=== PATIENT | female | born 1975 | race Caucasian/White ===

== ENCOUNTER 2025-02-07 08:14 | Day surgery (SDC) | payer BC, SELFPAY ==
--- NOTE | 2025-01-31 12:36 | HP.PCM_ITS ---
History and Physical Date of Admission: 02/07/25 HPI: The patient is a 49 year old female presenting for pre-operative visit. She is scheduled for hysteroscopy with endometrial ablation, for menorrhagia with regular cycle . Procedure discussed along with risks, benefits and complications. Other alternatives discussed for management. Consent form signed? Yes. ? ? PAST MEDICAL HISTORY PAST MEDICAL HISTORYDiagnosisDate?Abnormal glandular Papanicolaou smear of [id number]?Abn. Pap smear (cervix)?PMH - PAST MEDICAL HISTORY OF??POST DVT?PMH - PAST MEDICAL HISTORY OF??MISCARRIAGE X6?Urinary tract infection, site not specified??Recurrent UTI's ? ? PAST SURGICAL HISTORY PAST SURGICAL HISTORYProcedureLateralityDate? DELIVERY ONLY?07/23/2009,2007,2011?, low transverseX2?DILATION & CURETTAGE DX&/THER NONOBSTETRIC?2004,2009?Dilation & curettage?LIG/TRNSXJ FLP TUBE ABDL/VAG APPR UNI/BI?12/29/11?Tubal ligation ? ? ? CURRENT MEDICATIONS Current Outpatient MedicationsMedicationSigDispenseRefill?BEEFBeef organ???tranexamic acid (LYSTEDA) 650 mg tabletTake 2 tablets by mouth three times a day. for 5 days when your period [id number]?No current facility- administered medications for this visit. ? ? ALLERGIES: Patient has no known allergies. ? PERSONAL HISTORY: [SOCIAL HISTORY] [SOCIAL HISTORY] Social History Tobacco Use ? Smoking status: Former ? ? Current packs/day: 0.00 ? ? Average packs/day: 0.5 packs/day for 1 0.0 years (5.0 ttl pk-yrs) ? ? Types: Cigarettes ? ? Start date: 02/19/1997 ? ? Quit date: 02/19/2007 ? ? Years since quittin.9 ? Smokeless tobacco: Never Vaping Use ? Vaping status: Never Used Substance Use Topics ? Alcohol use: Yes ? ? Comment: SOCIALLY,NOT WHILE ? Drug use: No ? FAMILY HISTORY: FAMILY HISTORY FAMILY HISTORY ProblemRelationAge of Onset ?DiabetesFather??HypertensionFather??HeartFather?? [place]?DiabetesMother??Colon [id number]?Ovarian qvvoxdUkgyyp65?other (LYMPHEDMA)Mother??COPDMaternal Grandmother??CancerMaternal Grandfather?? LUNG CANCER?HypertensionPaternal Grandmother??HeartPaternal Grandmother?? [place]?CancerPaternal Grandfather?? LUNG CANCER0 ? ? REVIEW OF SYMPTOMS: GENERAL: denies fevers or chills ENDOCRINOLOGY: has not been on steroids Cardiology : denies palpitations or chest pain Respiratory: denies SOB or cough Hematology: denies history of prolonged bleeding or easy bruising or VTE Allergy: Denies history of personal or family history of allergy to anesthesia ? PHYSICAL EXAMINATION: ? VITALS: Last menstrual period 11/22/2024. ? GENERAL: The patient is well nourished, well hydrated in no acute distress. , The patient is oriented to time, place, and person. NECK: Supple. No lynphadenopathy, normal thyroid, no thyromegaly. LUNGS: Clear to auscultation bilaterally. no wheezes, rhonchi or rales HEART: Regular rate and rhythm, Normal heart sounds, and No murmurs or gallops ? IMPRESSION: menorrhagia with regula cycle ? PLAN: The risks/benefits/alternatives and personal involved for the planned hysteroscopy with endometrial ablation were reviewed with the patient. Her questions were answered to her satisfaction and she desires to proceed. Consent was signed. I reviewed with her postop instructions and expectations. ? ? I have reviewed and updated past medical and surgical history, medications and allergies Assessment & Plan Assessment/Plan (1) Menorrhagia with regular cycle:
--- NOTE | 2025-01-31 12:36 | HP.PCM_ITS ---
History and Physical Date of Admission: 02/07/25 HPI: The patient is a 49 year old female presenting for pre-operative visit. She is scheduled for hysteroscopy with endometrial ablation, for menorrhagia with regular cycle . Procedure discussed along with risks, benefits and complications. Other alternatives discussed for management. Consent form signed? Yes. ? ? PAST MEDICAL HISTORY PAST MEDICAL HISTORYDiagnosisDate?Abnormal glandular Papanicolaou smear of [id number]?Abn. Pap smear (cervix)?PMH - PAST MEDICAL HISTORY OF??POST DVT?PMH - PAST MEDICAL HISTORY OF??MISCARRIAGE X6?Urinary tract infection, site not specified??Recurrent UTI's ? ? PAST SURGICAL HISTORY PAST SURGICAL HISTORYProcedureLateralityDate? DELIVERY ONLY?07/23/2009,2007,2011?, low transverseX2?DILATION & CURETTAGE DX&/THER NONOBSTETRIC?2004,2009?Dilation & curettage?LIG/TRNSXJ FLP TUBE ABDL/VAG APPR UNI/BI?12/29/11?Tubal ligation ? ? ? CURRENT MEDICATIONS Current Outpatient MedicationsMedicationSigDispenseRefill?BEEFBeef organ???tranexamic acid (LYSTEDA) 650 mg tabletTake 2 tablets by mouth three times a day. for 5 days when your period [id number]?No current facility- administered medications for this visit. ? ? ALLERGIES: Patient has no known allergies. ? PERSONAL HISTORY: [SOCIAL HISTORY] [SOCIAL HISTORY] Social History Tobacco Use ? Smoking status: Former ? ? Current packs/day: 0.00 ? ? Average packs/day: 0.5 packs/day for 1 0.0 years (5.0 ttl pk-yrs) ? ? Types: Cigarettes ? ? Start date: 02/19/1997 ? ? Quit date: 02/19/2007 ? ? Years since quittin.9 ? Smokeless tobacco: Never Vaping Use ? Vaping status: Never Used Substance Use Topics ? Alcohol use: Yes ? ? Comment: SOCIALLY,NOT WHILE ? Drug use: No ? FAMILY HISTORY: FAMILY HISTORY FAMILY HISTORY ProblemRelationAge of Onset ?DiabetesFather??HypertensionFather??HeartFather?? [place]?DiabetesMother??Colon [id number]?Ovarian lexssqVbxkjy53?other (LYMPHEDMA)Mother??COPDMaternal Grandmother??CancerMaternal Grandfather?? LUNG CANCER?HypertensionPaternal Grandmother??HeartPaternal Grandmother?? [place]?CancerPaternal Grandfather?? LUNG CANCER0 ? ? REVIEW OF SYMPTOMS: GENERAL: denies fevers or chills ENDOCRINOLOGY: has not been on steroids Cardiology : denies palpitations or chest pain Respiratory: denies SOB or cough Hematology: denies history of prolonged bleeding or easy bruising or VTE Allergy: Denies history of personal or family history of allergy to anesthesia ? PHYSICAL EXAMINATION: ? VITALS: Last menstrual period 11/22/2024. ? GENERAL: The patient is well nourished, well hydrated in no acute distress. , The patient is oriented to time, place, and person. NECK: Supple. No lynphadenopathy, normal thyroid, no thyromegaly. LUNGS: Clear to auscultation bilaterally. no wheezes, rhonchi or rales HEART: Regular rate and rhythm, Normal heart sounds, and No murmurs or gallops ? IMPRESSION: menorrhagia with regula cycle ? PLAN: The risks/benefits/alternatives and personal involved for the planned hysteroscopy with endometrial ablation were reviewed with the patient. Her questions were answered to her satisfaction and she desires to proceed. Consent was signed. I reviewed with her postop instructions and expectations. ? ? I have reviewed and updated past medical and surgical history, medications and allergies Assessment & Plan Assessment/Plan (1) Menorrhagia with regular cycle:
[2025-02-03 14:10] LABS: Hematocrit 41.5 % (37-47); Hemoglobin 14.4 g/dL (12.0-15.0); Mean Corp Hgb Conc 34.7 g/dL (32-36); Mean Corpuscular Volume 83.5 fL (81-99); Mean Platelet Vol. 9.5 fl (6.2-12.0); Platelet Count 240 K/mm3 (150-450); RBC Distribution Width CV 13.1 % (11.6-14.6); RBC Distribution Width SD 39.7 fl (35.1-43.9); Red Blood Count 4.97 M/mm3 (4.2-5.4); White Blood Count 9.1 K/mm3 (4.4-11.0)
[2025-02-07] VITALS (8 sets, daily range): BP systolic 111–135; BP diastolic 71–92; PULSE 67–113; RESP 16–20; TEMP 36.2–36.3; O2SAT 99–100; BMI 29.3
--- OUTSIDE RECORDS SUMMARY | 2025-02-07 08:38 | XMS RPT_ITS | CCD ---
Author Organization [facility] Inform ion Partnership [facility] Care Team Providers Care Blender Conveyor Operator Name Role Phone Joshua Kong Primary Care Provider [phone] ENRIQUE HOOD Referring Unavaila ble ENRIQUE HOOD Attending Unavaila ble MIKLATOYA RYLAND Primary Care Unavailable MIKALOV RYLAND Primary Care Unavailable SYSTEM, PROVIDER NOT IN Referring Unavaila ble SYSTEM, PROVIDER NOT IN Attending Unavaila ble SYSTEM, PROVIDER NOT IN Referring Unavaila ble SYSTEM, PROVIDER NOT IN Attending Unavaila ble TAMIA, RYLAND Primary Care Unavailable Joshua Kong Primary Care Provider [phone] AZEB PROTCOR Attending Unavailable JOSHUA KONG Primary Care Unavailable JOSHUA KONG Primary Care Unavailable JOSHUA KONG Primary Care Unavailable AZEB PROCTOR Referring Unavailable AZEB PROCTOR Attending Unavailable AZEB PROCTOR Referring Unavailable AZEB PROCTOR Attending Unavailable ENRIQUE HOOD Primary Care Unavaila Azeb Mcginnis Referring Unavailable Azeb Proctor Attending Unavailable CASS HOOPER Primary Care Unavailable Medications Current Medications Medication Drug Class(es) Dates Sig (Normalized) Sig (Original) beef allergenic extract (1 source) Non-Standardized Food Allergenic Extract BEEF Beef organ Active meloxicam 15 mg oral tablet (1 source) Nonsteroidal Anti-inflammatory Drug Start: 7 take 1 tablet by mouth once daily meloxicam 15 MG Tab tablet Indications: Pain of right hand Take 1 tablet by mouth daily. 30 tablet 1 03/23/2017 Active nitrofurantoin, macrocrystals 25 mg / nitrofurantoin, monohydrate 75 mg oral capsule (1 source) Nitrofuran Antibacterial Start: 9 End: 9 take 1 capsule by mouth twice daily nitrofurantoin, macrocrystal-monohy drate, 100 MG Cap Indications: Acute cystitis without hematuria Take 1 capsule by mouth 2 times daily for 10 days. Take w/ food/milk 20 capsule 0 03/13/2019 03/23/2019 Active phenazopyridine hydrochloride 200 mg oral tablet (1 source) Start: 9 take 1 tablet by mouth three times daily phenazopyridine 200 MG Tab tablet Indications: Acute cystitis without hematuria Take 1 tablet by mouth 3 times daily. 6 tablet 0 03/13/2019 Active tranexamic acid 650 mg oral tablet (1 source) Antifibrinolytic Agent Start: 5 take 2 tablets by mouth three times daily tranexamic acid (LYSTEDA) 650 mg tablet Indications: Menorrhagia with regular cycle Take 2 tablets by mouth three times a day. for 5 days when your period starts 30 tablet 11 12/11/2024 Active Problems Active Problems Problem Classification Problem Date Documented Date Episodic/Chronic Immunizations and screening for infectious disease (2 sources) Patient encounter status; Translations: [Encounter for screening for human papillomavirus (HPV)] Onset: 12-11-2024 12-11-2024 Episodic Malaise and fatigue (3 sources) Malaise and fatigue; Translations: [Other malaise] Onset: 01-03-2025 12-11-2024 Episodic Menstrual disorders (6 sources) Menorrhagia; Translations: [Excessive and frequent menstruation with regular cycle] Onset: 12-11-2024 12-11-2024 Chronic Other female genital disorders (3 sources) Abnormal uterine and vaginal bleeding, unspecified; Translations: [Abnormal uterine bleeding (AUB)] Onset: 12-11-2024 Chronic Other screening for suspected conditions (not mental disorders or infectious disease) (4 sources) Encounter for screening mammogram for malignant neoplasm of breast; Translations: [Cancer cervix screening status] Onset: 09-25-2024 Episodic Urinary tract infections (2 sources) Urinary tract infectious disease; Translations: [Acute cystitis] Episodic Past or Other Problems Problem Classification Problem Date Documented Da te Episodic/Chronic Allergic reactions (1 source) Allergic reaction to drug; Translations: [Allergy, unspecified, initial encounter] Onset: 07-03-2011 Resolved: 08-17-2011 08-17-2011 Episodic Anal and rectal conditions (1 source) Anal fissure; Translations: [Anal fissure, unspecified] Onset: 09-17-2010 Resolved: 08-17-2011 08-17-2011 Episodic Coagulation and hemorrhagic disorders (1 source) Heterozygous Factor V Leiden mutation; Translations: [Activated protein C resistance] Onset: 10-12-2011 Resolved: 10-12-2011 10-12-2011 Chronic Hemorrhoids (1 source) Hemorrhoids; Translations: [Unspecified hemorrhoids] Onset: 09-17-2010 09-17-2010 Episodic Other complications of (2 sources) Supervision of other high risk pregnancies, unspecified trimester; Translations: [Supervision of other high-risk ] Onset: 05-10-2007 Resolved: 08-05-2009 08-20-2024 Episodic Other complications of (2 sources) Recurrent miscarriage; Translations: [ care for patient with recurrent loss, unspecified trimester] Onset: 07-07-2007 Resolved: 01-13-2012 08-20-2024 Episodic Other complications of (2 sources) Supervision of with other poor reproductive or obstetric history, unspecified trimester; Translations: [ with other poor obstetric history] Onset: 11-08-2007 Resolved: 08-05-2009 08-20-2024 Episodic Other complications of (1 source) Multigravida of advanced maternal age; Translations: [Supervision of elderly multigravida, unspecified trimester] Onset: 05-24-2011 Resolved: 01-13-2012 01-13-2012 Episodic Other complications of (1 source) A/N care: poor obstetric history; Translations: [Supervision of with other poor reproductive or obstetric history, unspecified trimester] Onset: 10-12-2011 Resolved: 01-13-2012 04-19-2021 Episodic Other skin disorders (1 source) Superficial ulcer of skin; Translations: [Disorder of the skin and subcutaneous tissue, unspecified] Onset: 07-03-2011 Resolved: 08-17-2011 08-17-2011 Episodic Phlebitis; thrombophlebitis and thromboembolism (1 source) H/O: Deep vein thrombosis; Translations: [Personal history of other venous thrombosis and embolism] Onset: 10-12-2011 04-19-2021 Episodic Skin and subcutaneous tissue infections (2 sources) Pyoderma; Translations: [Pyoderma] Onset: 07-03-2011 Resolved: 08-17-2011 08-17-2011 Episodic Results Test Name Value Interpretation Reference Range Facility CBC-Complete Blood Cnt Elba Hernandez 02-03-2025 Erythrocyte distribution width (RBC) [Ratio] 13.1 % Normal 11.6-14.6 [facility] Comment on above: Performed By: #### L 100.0500 #### [facility] [address] [place], [address] Hematocrit (Bld) [Volume fraction] 41.5 % Normal 37-47 [facility] Comment on above: Performed By: #### L 100.0500 #### [facility] [address] [place], [address] Hemoglobin (Bld) [Mass/Vol] 14.4 g/dL Normal 12.0-15.0 [facility] Comment on above: Performed By: #### L 100.0500 #### [facility] [address] [place], [address] MCH (RBC) [Entitic mass] 29.0 pg Normal 27.0-32.0 [facility] Comment on above: Performed By: #### L 100.0500 #### [facility] [address] [place], [address] MCHC (RBC) [Mass/Vol] 34.7 g/dL Normal 32-36 [facility] Comment on above: Performed By: #### L 100.0500 #### [facility] [address] [place], [address] MCV (RBC) [Entitic vol] 83.5 fL Normal 81-99 [facility] Comment on above: Performed By: #### L 100.0500 #### [facility] [address] [place], [address] Platelet mean volume (Bld) [Entitic vol] 9.5 fL Normal 6.2-12.0 [facility] Comment on above: Performed By: #### L 100.0500 #### [facility] [address] [place], [address] Platelets (Bld) [#/Vol] 240 10*3/uL Normal 150-450 [facility] Comment on above: Performed By: #### L 100.0500 #### [facility] [address] [place], [address] RBC (Bld) [#/Vol] 4.97 10*6/uL Normal 4.2-5.4 [facility] Comment on above: Performed By: #### L 100.0500 #### [facility] [address] [place], [address] RDW SD 39.7 fl Normal 35.1-43.9 [facility] Comment on above: Performed By: #### L 100.0500 #### [facility] [address] [place], [address] WBC (Bld) [#/Vol] 9.1 10*3/uL Normal 4.4-11.0 [facility] Comment on above: Performed By: #### L 100.0500 #### [facility] [address] [place], [address] CNOVon 01-17-2025 CNOV Office Visit (OBGYWM ) MELLISA CRUZ ([id number]) 1975 F Date Time Provider Department 01/17/25 11:30 AM AZEB PROCTOR OBGYWHiginio During your visit today, we recorded the following information about you: Azeb Proctor MD 01/17/2025 12:27 PM Signed Mellisa is a 49 year old who presents today for an endometrial biopsy for abnormal uterine bleeding. test: negative UNIVERSAL PROTOCOL / SAFETY CHECKLIST Procedure to be Performed: EMB Sign In: A Moment of CARE was completed. Appropriate PPE (Personal Protective Equipment) worn by all providers involved with the procedure. Special equipment not required. Patient/Surrogate Stated/Verified: Patient name, Date of , Relevant allergies, and The intended procedure Time Out: Relevant labs, photos, and/or imaging studies have been reviewed. Intended patient and procedure match the source document(s) (e.g. consent, HANDP, associated studies [imaging, pathology]) are not applicable. Consent obtained and matches the intended procedure. Yes. Correct side/site is not applicable. Medications required for this procedure are verified. Fire risk assessed and is not applicable. Implants: are not applicable. Sign Out: Specimens are all correctly labeled and sent. All instruments, equipment, possible retained foreign bodies are accounted for. Yes. The post-procedure plan of care has been communicated to the patient or surrogate. PROCEDURE: EXTERNAL GENITALIA: Normal in appearance without lesions VAGINA: Normal in appearance without lesions BIOPSY: Speculum placed into the vagina with excellent visualization of the cervix. Cervix cleaned with betadine. Anterior lip of cervix grasped with single toothed tenaculum. Uterus sounded to 10 cm. Pipelle inserted into the uterus without difficulty and endometrial biopsy obtained. Specimen labeled and sent to pathology. Procedure Summary: Patient tolerated procedure well. ASSESSMENT: abnormal uterine bleeding PLAN: Specimens labeled and sent to Pathology. Will notify patient of results in 1-2 weeks. Post-procedure instructions reviewed and written material given to the patient. desires endometrial ablation Reviewed US done 01/13 MD Magui Carranza [place], [place] 01/17/2025 11:15 AM Signed Post-Procedure Instructions Endometrial Biopsy Instructions: You may experience irregular bleeding / spotting for up to a week after this procedure. Use a panty liner or pad instead of tampons for about one week. Avoid vaginal intercourse or putting anything in your vagina for about one week. Pain Control / Medications: Take 600 mg of ibuprofen (Advil, Motrin, etc.) or 1000 mg of acetaminophen (Tylenol) every 6 hours as needed for pain Do not take more than 2400 mg of ibuprofen or 4000 mg of acetaminophen in any 24 hour period You can also put a heating pad on your abdomen to help with pain. Call your provider's office if you: Have a fever greater than 100.4? F (38.0? C) Have very heavy bleeding (soaking 1 large pad an hour for 2 hours in a row) Prolonged vaginal bleeding for > 7 days following your procedure Have severe cramps that do not go away after you take ibuprofen or acetaminophen Have foul smelling vaginal discharge Follow-Up: Your specific follow up plan will depend on the results of the biopsy. Most biopsy results are available in 3 to 5 business days via Moe Delo, unless a different method of communication was discussed today with your provider. Azeb Proctor MD 01/17/2025 12:27 PM Signed Pre-Op History and Physical HPI: The patient is a 49 year old female presenting for pre-operative visit. She is scheduled for hysteroscopy with endometrial ablation, for menorrhagia with regular cycle . Procedure discussed along with risks, benefits and complications. Other alternatives discussed for management. Consent form signed? Yes. PAST MEDICAL HISTORY Diagnosis Date Abnormal glandular Papanicolaou smear of cervix 1997 Abn. 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 X6 Urinary tract infection, site not specified Recurrent UTI's PAST SURGICAL HISTORY Procedure Laterality Date DELIVERY ONLY 07/23/2009,2007,2011 , low transverseX2 DILATION AND CURETTAGE DXAND/THER NONOBSTETRIC 2004,2009 Dilation AND curettage LIG/TRNSXJ FLP TUBE ABDL/VAG APPR UNI/BI 12/29/11 Tubal ligation Current Outpatient Medications Medication Sig Dispense Refill BEEF Beef organ tranexamic acid (LYSTEDA) 650 mg tablet Take 2 tablets by mouth three times a day. for 5 days when your period starts 30 tablet 11 No current facility-administered medications for this visit. ALLERGIES: Patient has no known allergies. PERSONAL HISTORY: SOCIAL HISTORY[1] FAMILY HISTORY: FAMILY HISTORY Problem Relati (more content not included)... Normal [facility] HISTORY PHYSICALon HISTORY PHYSICAL HNO ID: [id number] Author: AZEB PROCTOR MD Service: ? Author Type: Physician Type: H&P Filed: 01/17/2025 12:27 Note Text: Pre-Op History and Physical HPI: The patient is a 49 year old female presenting for pre-operative visit. She is scheduled for hysteroscopy with endometrial ablation, for menorrhagia with regular cycle . Procedure discussed along with risks, benefits and complications. Other alternatives discussed for management. Consent form signed? Yes. PAST MEDICAL HISTORY Diagnosis Date Abnormal glandular Papanicolaou smear of cervix 1997 Abn. 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 X6 Urinary tract infection, site not specified Recurrent UTI's PAST SURGICAL HISTORY Procedure Laterality Date DELIVERY ONLY 07/23/2009,2007,2011 , low transverseX2 DILATION AND CURETTAGE DXAND/THER NONOBSTETRIC 2004,2009 Dilation AND curettage LIG/TRNSXJ FLP TUBE ABDL/VAG APPR UNI/BI 12/29/11 Tubal ligation Current Outpatient Medications Medication Sig Dispense Refill BEEF Beef organ tranexamic acid (LYSTEDA) 650 mg tablet Take 2 tablets by mouth three times a day. for 5 days when your period starts 30 tablet 11 No current facility-administered medications for this visit. ALLERGIES: Patient has no known allergies. PERSONAL HISTORY: SOCIAL HISTORY[1] FAMILY HISTORY: FAMILY HISTORY Problem Relation Age of Onset Diabetes Father Hypertension Father Heart Father HI Diabetes Mother Colon Cancer Mother 69 Ovarian cancer Mother 77 other (LYMPHEDMA) Mother COPD Maternal Grandmother Cancer Maternal Grandfather LUNG CANCER Hypertension Paternal Grandmother Heart Paternal Grandmother HI Cancer Paternal Grandfather LUNG CANCER REVIEW OF SYMPTOMS: GENERAL: denies fevers or chills ENDOCRINOLOGY: has not been on steroids Cardiology : denies palpitations or chest pain Respiratory: denies SOB or cough Hematology: denies history of prolonged bleeding or easy bruising or VTE Allergy: Denies history of personal or family history of allergy to anesthesia PHYSICAL EXAMINATION: VITALS: Last menstrual period 11/22/2024. GENERAL: The patient is well nourished, well hydrated in no acute distress. , The patient is oriented to time, place, and person. NECK: Supple. No lynphadenopathy, normal thyroid, no thyromegaly. LUNGS: Clear to auscultation bilaterally. no wheezes, rhonchi or rales HEART: Regular rate and rhythm, Normal heart sounds, and No murmurs or gallops IMPRESSION: menorrhagia with regula cycle PLAN: The risks/benefits/alterna tives and personal involved for the planned hysteroscopy with endometrial ablation were reviewed with the patient. Her questions were answered to her satisfaction and she desires to proceed. Consent was signed. I reviewed with her postop instructions and expectations. I have reviewed and updated past medical and surgical history, medications and allergies Azeb Proctor M.D. [1] Social History Tobacco Use Smoking status: Former Current packs/day: 0.00 Average packs/day: 0.5 packs/day for 10.0 years (5.0 ttl pk-yrs) Types: Cigarettes Start date: 02/19/1997 Quit date: 02/19/2007 Years since quittin.9 Smokeless tobacco: Never Vaping Use Vaping status: Never Used Substance Use Topics Alcohol use: Yes Comment: SOCIALLY,NOT WHILE Drug use: No Normal [facility] Pathology biopsy report Saman (Tiss)on 01-17-2025 AP DISCLAIMER Normal [facility] Comment on above: Order Comment: Ev dixon Type: TISSUE SPECIMEN Ordering Facility: [facility] Address: [address] [place] [address] Result Comment: Venu gaxiola Developed Test (LDT) Disclaimer: Performance characteristics of immunohistochemical, immunofluorescent, and chromogenic in-situ hybridization tests have been determined by the performing laboratory within the [facility] Department of Pathology and Laboratory Medicine ([facility], [facility], [facility], [facility], [facility], [facility], or [facility]) in a manner consistent with CLIA requirements. One or more of these tests may not have been cleared or approved by the FDA. The [facility] Department of Pathology and Laboratory Medicine is regulated under CLIA as qualified to perform high-complexity testing. These tests are used for clinical purposes. These should not be regarded as investigational or for research. Positive and negative controls stain appropriately. Performed By: #### 6 6121-5 #### [facility] CLIA [id number] [address] [place] [address] [place] [address] [place] CASE REPORT Normal [facility] Comment on above: Order Comment: Speci men Type: TISSUE SPECIMEN Ordering Facility: [facility] Address: [address] [place] [address] Result Comment: Surg [facility] Pathology Report Case: [id number] Authorizing Provider: Azeb Proctor MD Collected: 01/17/2025 11:52 AM Ordering Location: OB/Gynecology Received: 01/17/2025 04:44 PM Pathologist: Cecilio Floyd MD, PhD Specimen: Endometrium, Biopsy Performed By: #### 6 6121-5 #### [facility] CLIA [id number] [address] [place] [address] OF [facility] CLINICAL HISTORY menorrhagia with regular cycle Normal [facility] Comment on above: Order Comment: Speci men Type: TISSUE SPECIMEN Ordering Facility: [facility] Address: [address] [place] [address] Performed By: #### 6 6121-5 #### [facility] CLIA [id number] [address] [place] [address] FINAL DIAGNOSIS Normal [facility] Comment on above: Order Comment: Speci men Type: TISSUE SPECIMEN Ordering Facility: [facility] Address: [address] [place] [address] Result Comment: A. E ndometrium, biopsy: - Proliferative endometrium with stromal breakdown. at 1138 EDT Performed By: #### 6 6121-5 #### [facility] CLIA [id number] [address] [place] [address] OF [facility] FINAL PERFORMING LAB Normal [facility] Comment on above: Order Comment: Speci men Type: TISSUE SPECIMEN Ordering Facility: [facility] Address: [address] [place] [address] Result Comment: Diag nostic interpretation performed at: [facility], [address] [place] [address] CLIA# [id number] Imaging Assistant: Jhon Fu MD Performed By: #### 6 6121-5 #### [facility] CLIA [id number] [address] [place] [address] [place] GROSS DESCRIPTION Normal [facility] Comment on above: Order Comment: Speci men Type: TISSUE SPECIMEN Ordering Facility: [facility] Address: [address] [place] [address] Result Comment: A. E ndometrium, Biopsy Received in formalin are multiple jewell to jewell-brown, soft feathery segments of tissue admixed with mucinous material and red-brown hemorrhagic material aggregating to 2.1 x 2.1 x 0.2 cm. Totally submitted in one cassette. DB January 17, 2025 7:30 PM Gross examination performed at [facility], [address] [place] [address] Performed By: #### 6 6121-5 #### [facility] [place] [id number] [address] [place] [address] [place] US PELVIC TRANSABDOMINAL AND TRANSVAGINALon 01-13-2025 US PELVIC TRANSABDOMINAL AND TRANSVAGINAL EXAMINATION: TRANSABDOMINAL AND TRANSVAGINAL PELVIC ULTRASOUND HISTORY: Abnormal uterine bleeding. COMPARISON FILMS: None. TECHNIQUE: Multiple sagittal, coronal images were obtained using transvaginal, transabdominal ultrasound. FINDINGS: The uterus measures 8.5 x 4.7 x 5.9 cm. Endometrium measures 5 mm. No focal endometrial lesion is apparent. Focal myometrial lesion is apparent. Somewhat limited uterine assessment. I cannot exclude heterogeneous mild thickening of the anterior myometrium. There are several probable nabothian cysts. These should be correlated clinically since they are entirely specific. No free pelvic fluid. Right ovary measures 3.4 x 2.2 x 2.2 cm. Left ovary measures 2.1 x 1.4 x 1.6 cm. The ovaries show few follicles and demonstrate color Doppler blood flow. IMPRESSION: Somewhat limited uterine evaluation due to its orientation. The anterior myometrium may be minimally heterogeneous and slightly prominent. Underlying adenomyosis is not excluded but the findings are nonspecific. MRI could further characterize. Several tiny cystic areas in the cervix should be correlated Pap smear results are likely nabothian cysts. Unremarkable ovaries. BJW/mjr Workstation ID: [id number] Dictated by: SO SANDHU on MonJan 13, 2025 3:31:23 PM EDT Transcribed by: BRIDGER HURTADO on MonJan 13, 2025 3:45:25 PM EDT Finalized by: SO SANDHU on MonJan 13, 2025 3:47:29 PM EDT [facility] Comment on above: Order Comment: Pt to bring order Injury/Trauma or Illness?:Illness/Other How long have you had these symptoms (acute/chronic)?:Acute Reason for exam?:AUB History of cancer?:unknown Surgeries, chemotherapy, or radiation?:c sections Type of Exam?:Initial Additional signs and symptoms?:no 25(OH)D3 [facility] 2024 25-hydroxyvitamin D3 [Mass/Vol] 81.0 ng/mL High 31.0-80.0 [facility] Comment on above: Order Comment: Ev dixon Type: BLOOD SPECIMEN Ordering Facility: [facility] Address: [address] [place] [address] Result Comment: Clas sification of 25 [place] Vitamin D status: Deficiency/Insufficiency: < or = 30 ng/ml. Sufficiency/Optimal Levels: 31-80 ng/mL Toxicity: > 100 ng/mL. Test performed by chemiluminescent immunoassay. Performed By: #### 1 989-3 #### [facility] CLIA [id number] [address] [place] [address] [place] CBC panel Auto (Bld)on 01-03 Erythrocyte distribution width (RBC) [Ratio] 13.1 % Normal 11.5-15.0 [facility] Comment on above: Order Comment: Ev dixon Type: BLOOD SPECIMEN Ordering Facility: [facility] Address: [address] [place] [address] Performed By: #### 5 8410-2 #### [facility] CLIA [id number] [address] [place] [address] [place] Hematocrit (Bld) [Volume fraction] 39.3 % Normal 36.0-46.0 [facility] Comment on above: Order Comment: Ev dixon Type: BLOOD SPECIMEN Ordering Facility: [facility] Address: [address] [place] [address] Performed By: #### 5 8410-2 #### [facility] CLIA [id number] [address] [id number] [place] Hemoglobin (Bld) [Mass/Vol] 13.7 g/dL Normal 11.5-15.5 [facility] Comment on above: Order Comment: Speci men Type: BLOOD SPECIMEN Ordering Facility: [facility] Address: [address] [place] [address] Performed By: #### 5 8410-2 #### [facility] CLIA [id number] [address] [id number] [place] MCH (RBC) [Entitic mass] 29.3 pg Normal 26.0-34.0 [facility] Comment on above: Order Comment: Speci men Type: BLOOD SPECIMEN Ordering Facility: [facility] Address: [address] [place] [address] Performed By: #### 5 8410-2 #### [facility] CLIA [id number] [facility] [place] [address] [place] MCHC (RBC) [Mass/Vol] 34.9 g/dL Normal 30.5-36.0 [facility] Comment on above: Order Comment: Speci men Type: BLOOD SPECIMEN Ordering Facility: [facility] Address: [address] [place] [address] Performed By: #### 5 8410-2 #### [facility] CLIA [id number] [facility] [place] [id number] [place] MCV (RBC) [Entitic vol] 84.0 fL Normal 80.0-100.0 [facility] Comment on above: Order Comment: Speci men Type: BLOOD SPECIMEN Ordering Facility: [facility] Address: [address] [place] [address] Performed By: #### 5 8410-2 #### [facility] CLIA [id number] [address] [id number] [place] Nucleated RBC (Bld) [#/Vol] 10*3/uL Normal <0.01 [facility] Comment on above: Order Comment: Speci men Type: BLOOD SPECIMEN Ordering Facility: [facility] Address: [address] [place] [address] Performed By: #### 5 8410-2 #### [facility] CLIA [id number] [address] [place] [address] [place] Platelet mean volume (Bld) [Entitic vol] 8.8 fL Low 9.0-12.7 [facility] Comment on above: Order Comment: Speci men Type: BLOOD SPECIMEN Ordering Facility: [facility] Address: [address] [place] [address] Performed By: #### 5 8410-2 #### [facility] CLIA [id number] [facility] [place] [id number] [place] Platelets (Bld) [#/Vol] 217 10*3/uL Normal 150-400 [facility] Comment on above: Order Comment: Speci men Type: BLOOD SPECIMEN Ordering Facility: [facility] Address: [address] [place] [address] Performed By: #### 5 8410-2 #### [facility] CLIA [id number] [facility] [place] [id number] [place] RBC (Bld) [#/Vol] 4.68 10*6/uL Normal 3.90-5.20 [facility] Comment on above: Order Comment: Speci men Type: BLOOD SPECIMEN Ordering Facility: [facility] Address: [address] [place] [address] Performed By: #### 5 8410-2 #### [facility] CLIA [id number] [address] [place] [address] [place] WBC (Bld) [#/Vol] 7.03 10*3/uL Normal 3.70-11.00 [facility] Comment on above: Order Comment: Speci men Type: BLOOD SPECIMEN Ordering Facility: [facility] Address: [address] [place] [address] Performed By: #### 5 8410-2 #### [facility] CLIA [id number] [address] [place] [address] [place] Iron and Iron binding capaci ty panelon 01-03-2025 Iron [Mass/Vol] 43 ug/dL Normal 41-186 [facility] Comment on above: Order Comment: Speci men Type: BLOOD SPECIMEN Ordering Facility: [facility] Address: [address] [place] [address] Performed By: #### 5 0190-8 #### [facility] CLIA [id number] [address] [place] [address] STATES [facility] Iron binding capacity [Mass/Vol] 337 ug/dL Normal 232-386 [facility] Comment on above: Order Comment: Speci men Type: BLOOD SPECIMEN Ordering Facility: [facility] Address: [address] [place] [address] Performed By: #### 5 0190-8 #### [facility] CLIA [id number] [address] [place] [address] [place] Iron/TIBC [Molar ratio] 12.8 % Low 15.0-57.0 [facility] Comment on above: Order Comment: Speci men Type: BLOOD SPECIMEN Ordering Facility: [facility] Address: [address] [place] [address] Performed By: #### 5 0190-8 #### [facility] CLIA [id number] [address] [place] [address] [place] CNOVon 12-11-2024 CNOV Office Visit (OBGYWM ) MELLISA CRUZ ([id number]) 1975 F Date Time Provider Department 12/11/24 12:00 PM AZEB PROCTOR OBGYWM During your visit today, we recorded the following information about you: Blood pressure Weight Last Period 122/74 83.5 kg 11/22/24 Azeb Proctor MD 12/11/2024 1:13 PM Signed Mellisa is a 49 year old who presents for an annual gynecologic exam with complaints, heavy menses, brain fog, fatigue, some hot flashes. Bleeds through protection at times Still get period: Yes Bleeding amount bothersome: Yes Bleeding between periods: No Period symptoms: Cramps; Mood change Menopause symptoms: Hot flashes Time with current partner: 20 years Number of lifetime partners: 10 control frequency: Never HPV vaccine: No; HPV:negative Last pap smear: 02/11/2021 History of abnormal pap: No, all prior PAP smears have been normal Bothersome pelvic pain: No Last mammogram: 2024 OB History Movmqxa95 Para4 Term4 Preterm0 AB6 Living4 SAB6 IAB0 Ectopic0 Multiple0 Live Births4 [employer] Consulting [employer] History LMP: 11/22/2024 (Exact Date), Having periods Age at Menarche: 17 Age at First : Age at Menopause: It 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 X6 Urinary tract infection, site not specified Recurrent UTI's PAST SURGICAL HISTORY Procedure Laterality Date DELIVERY ONLY 07/23/2009,2007,2012 , low transverseX2 DILATION AND CURETTAGE DXAND/THER NONOBSTETRIC 2004,2009 Dilation AND curettage LIG/TRNSXJ FLP TUBE ABDL/VAG APPR UNI/BI 12/29/11 Tubal ligation FAMILY HISTORY Problem Relation Age of Onset Diabetes Father Hypertension Father Heart Father HI Diabetes Mother Colon Cancer Mother 69 Ovarian cancer Mother 77 other (LYMPHEDMA) Mother COPD Maternal Grandmother Cancer Maternal Grandfather LUNG CANCER Hypertension Paternal Grandmother Heart Paternal Grandmother HI Cancer Paternal Grandfather LUNG CANCER SOCIAL HISTORY Social History Tobacco Use Smoking status: Former Current packs/day: 0.00 Average packs/day: 0.5 packs/day for 10.0 years (5.0 ttl pk-yrs) Types: Cigarettes Start date: 02/19/1997 Quit date: 02/19/2007 Years since quittin.8 Smokeless tobacco: Never Vaping Use Vaping status: Never Used Substance Use Topics Alcohol use: Yes Comment: SOCIALLY,NOT WHILE Drug use: No REVIEW OF SYSTEMS Abdomen: No abdominal pain, nausea, vomiting, diarrhea, or constipation. No bloating, early satiety, indigestion, or increased flatulence. Bladder: No dysuria, gross hematuria, urinary frequency, urinary urgency, or incontinence. Breast: No breast lumps, nipple d/c, overlying skin changes, redness or skin retraction. Allergies and current medication updated:Yes SENSITIVE EXAM: The sensitive examination was discussed with the Patient or Patient's Authorized Purchasing And Fiscal Clerk. As applicable, any other physician, advance practice provider, medical student, or other health professional student that will be observing or involved in the sensitive examination for educational or training purposes was discussed with the Patient or Authorized Purchasing And Fiscal Clerk. The Patient or Authorized Purchasing And Fiscal Clerk has agreed to proceed with the sensitive examination. (Sensitive examination includes inspection and/or palpation of the breasts, pelvis, prostate and anorectal regions). EXAM: BP 122/74 Wt 184 lb (83.5kg) LMP 11/22/2024 GENERAL: pleasant, female in no apparent distress HEENT: Normocephalic, atraumatic, mucus membranes moist, and no lesions NECK: Supple, full range of motion, no adenopathy, and thyroid normal DERMATOLOGY: Normal, without lesions, non-icteric, and non-hirsute BREAST: soft, non-tender, symmetric, no dominant mass, normal nipple-areolar complex, no lymphadenopathy, and no nipple discharge CHEST: Normal inspiratory effort ABDOMEN: soft, non-tender, and no masses PELVIC: external genitalia normal, normal Bartholin's glands, urethra, Vander's glands, no vulvar lesions, no cervical lesions, good vaginal support, physiologic discharge present, normal appearing perineal body and perianal region BIMANUAL: uterus normal size, shape and consistency, no adnexal masses, and non-tender RECTOVAGINAL:deferred NEURO: alert and oriented x3,exam grossly non-focal EXTREMITIES: normal ASSESSMENT/PLAN: 1) Health maintenance: Pap done with HPV. Mammogram up to date . Col (more content not included)... Normal [facility] PAP TESTon 12-11-2024 ADEQUACY Normal [facility] Comment on above: Order Comment: Speci men Type: FLUID SPECIMEN Ordering Facility: [facility] Address: [address] [place] [address] Result Comment: Sati sfactory for interpretation. Transformation zone present Performed By: #### L [id number] #### [facility] CLIA [id number] [address] [place] [address] [place] CASE REPORT Normal [facility] Comment on above: Order Comment: Speci men Type: FLUID SPECIMEN Ordering Facility: [facility] Address: [address] [place] [address] Result Comment: Gyne cologic Cytology Report Case: [id number] Authorizing Provider: Azeb Proctor MD Collected: 12/11/2024 02:55 PM Ordering Location: OB/Gynecology Received: 12/11/2024 04:28 PM First Screen: Roselyn Alejandra, CT, ASCP Rescreen: Ibrahima Roque, OLIVA, ASCP Specimen: Pap Test, ThinPrep, Cervix Performed By: #### L [id number] #### [facility] CLIA [id number] [address] [place] [address] [place] CLINICAL HISTORY, CYTOLOGY, PROPOSAL REP Routine Exam Normal [facility] Comment on above: Order Comment: Speci men Type: FLUID SPECIMEN Ordering Facility: [facility] Address: [address] [place] [address] Performed By: #### L [id number] #### [facility] CLIA [id number] [address] [place] [address] [place] FINAL PERFORMING LAB Normal [facility] Comment on above: Order Comment: Speci men Type: FLUID SPECIMEN Ordering Facility: [facility] Address: [address] [place] [address] Result Comment: Tech nical component, environmental solutions engineer screening performed at: [facility], [facility] [address] [address] CLIA: [id number] Diagnostic interpretation performed at: [facility], [address] [place] [address] CLIA# [id number] Imaging Assistant: Jhon Fu MD Performed By: #### L [id number] #### [facility] CLIA [id number] [address] [place], [place] [id number] [place] INTERPRETATION, CYTOLOGY, PROPOSAL REP Normal [facility] Comment on above: Order Comment: Speci men Type: FLUID SPECIMEN Ordering Facility: [facility] Address: [address] [place] [address] Result Comment: Nega tive for intraepithelial lesion or malignancy. at 1155 EDT Performed By: #### L [id number] #### [facility] CLIA [id number] [address] [place] [address] [place] LMP 11/22/2024 Normal [facility] Comment on above: Order Comment: Speci men Type: FLUID SPECIMEN Ordering Facility: [facility] Address: [address] [place] [address] Performed By: #### L [id number] #### [facility] CLIA [id number] [address] [place], [place] [id number] [place] PAP DISCLAIMER COMMENT The Pap Smear is a screening test for cervical cancer. False negative results occur with all screening tests, emphasizing the need for rescreening at recommended intervals, and clinical correlation. Normal [facility] Comment on above: Order Comment: Speci men Type: FLUID SPECIMEN Ordering Facility: [facility] Address: [address] [place] [address] Performed By: #### L [id number] #### [facility] CLIA [id number] [address] [place], [place] [id number] [place] PAP SENIOR PHYSICIAN COMMENT This specimen has be en analyzed by the FDA-approved [facility], which uses digital imaging and an enhanced artificial intelligence image analysis algorithm to identify calderon of interest on the microscopic slide, to assist the solid waste engineer and pathologist in evaluating cells on ThinPrep Pap tests. Following analysis, calderon of interest on the microscopic slide selected by the algorithm are reviewed by a solid waste engineer. If a sample requires hierarchical review, the pathologist will review the same calderon of interest selected by the algorithm prior to final interpretation. Normal [facility] Comment on above: Order Comment: Speci men Type: FLUID SPECIMEN Ordering Facility: [facility] Address: [address] [place] [address] Performed By: #### L [id number] #### [facility] CLIA [id number] [address] [place] [address] OF [place] MM SCREENING ALVARADO BILATERALo n 09-25-2024 MM SCREENING ALVARADO BILATERAL EXAMINATION: MM SCREENING ALVARADO BILATERAL INDICATION: Annual screening exam. Dx: Z12.31 (Visit for screening mammogram) ORDERING SYSTEM PROVIDED HISTORY: Visit for screening mammogram, TECHNOLOGIST PROVIDED HISTORY: ORDERING SYSTEM PROVIDED DIAGNOSIS CODES: Z12.31 Visit for screening mammogram COMPARISON: Mammograms 2019 and 2018 TECHNIQUE: Standard mammographic views, digital 2D and tomosynthesis. Computer-aided detection was utilized in the interpretation of this exam. FINDINGS: There are scattered areas of fibroglandular density. No suspicious masses, calcifications, skin thickening, or nipple retraction. No significant interval change. IMPRESSION: No mammographic evidence of malignancy. BIRADS: BIRADS - CATEGORY 1 Negative, no evidence of malignancy. Normal interval follow-up is recommended in 12 months. OVERALL ASSESSMENT - NEGATIVE A letter of notification will be sent to the patient regarding the results. [facility], along with the National [employer] Network and the [employer] recommend annual screening mammograms for women age 40 and older. Workstation ID: [id number] Dictated by: AGUSTIN WILDER on MonSep 25, 2024 1:37:28 PM EDT Transcribed by: AGUSTIN WILDER on MonSep 25, 2024 1:37:28 PM EDT Finalized by: AGUSTIN WILDER on MonSep 25, 2024 1:37:[address] [facility] Comment on above: Order Comment: PT/FA X MUMPS AB, IGGon 04-01-2019 MUMPS ABS, IGG <9.0 Low Immune >10.9 [facility] Comment on above: Result Comment: (NOT E) Negative <9.0 Equivocal 9.0 - 10.9 Positive >10.9 A positive result generally indicates past exposure to Mumps virus or previous vaccination. PERFORMED AT [facility] Performed By: #### R UBL #### [place] [address] #### LMUMPG LVARCZ #### [place] [address] RUBELLA SCREENon 04-01-2019 RUBELLA SCREEN Positive Normal POSITIVE [facility] Comment on above: Result Comment: POSI TIVE RESULT INDICATES PRESUMED IMMUNITY Testing performed at [place] [address] Performed By: #### R UBL #### [place] [address] #### LMUMPG LVARCZ #### Testing [place] [address] VARICELLA AB, IGMon 04-01-20 19 V-ZOSTER AB, IGM <0.91 Normal 0.00-0.90 [facility] Comment on above: Result Comment: (NOT E) Negative <0.91 Borderline 0.91 - 1.09 Positive >1.09 PERFORMED AT [facility] Performed By: #### R UBL #### [place] [address] #### LMUMPG, LVARCZ #### Testing performed at [address] [address] URINE CULTUREon 03-15-2019 Bacteria identified Cx Nom (U) SPECIMEN DESCRIPTION URINE CLEAN CATCH UA DIPSTICK LEUKOCYTE POSITIVE * Result Note: NITRITE NEGATIVE * CULTURE KLEBSIELLA PNEUMONIAE * Result Note: >100,000 C/C/ML * * Result Note: Testing performed at [place], [place] [address] * REPORT STATUS 03/15/2019 * Result Note: FINAL * ORGANISM KLEBSIELLA PNEUMONIAE * Result Note: KLEBSIELLA PNEUMONIAE * METHOD DOMENIC AMPICILLIN >=32 RESISTANT AMPICILLIN/SULBACTAM <=2 SUSCEPTIBLE CEFTRIAXONE <=1 SUSCEPTIBLE CEFAZOLIN <=4 SUSCEPTIBLE IMIPENEM <=0.25 SUSCEPTIBLE GENTAMICIN <=1 SUSCEPTIBLE TRIMETH-SULFA <=20 SUSCEPTIBLE AMOXICILLIN/CLAVULANIC A <=2 SUSCEPTIBLE NITROFURANTOIN 64 INTERMEDIATE PIPERACILLIN/TAZOBACTA M <=4 SUSCEPTIBLE LEVOFLOXACIN <=0.12 SUSCEPTIBLE ESBL NEGATIVE CEFTAZIDIME <=1 SUSCEPTIBLE Normal [facility] Comment on above: Performed By: #### A URNC #### Testing performed at [facility] [address] [place] [address] Testing performed at [facility] [address] [place] [address] POCT URINALYSIS DIPSTICK NON AUTOMATEDon 03-13-2019 Amorphous sediment LM Ql (Urine sed) [employer] Appearance (Body fld) cloudy [employer] Bacteria LM Ql (Urine sed) [employer] Bilirubin Ql (U) Negative [facility] Casts LM.LPF (Urine sed) [#/Area] [employer] Color (U) yellow [employer] Crystals LM Nom (Urine sed) [employer] Epithelial cells.squamous LM.HPF (Urine sed) [#/Area] [facility] Flow cytometry specialist review Saman (Unsp spec) [Interp] [employer] Ketones [Mass/Vol] Negative mg/dL [employer] Leukocyte esterase Qn (U) [employer] Leukocyte esterase Test strip Ql (U) trace [employer] Nitrite Ql (U) Negative [facility] HE[facility] TH pH (U) 6.0 [pH] [employer] POCT GLUCOSE, URINE Negative mg/dL [employer] Protein Ql (U) Negative mg/dL [facility] RBC LM.HPF (Urine sed) [#/Area] [employer] RBC Ql (U) Negative [employer] Specific gravity (U) [Rel density] 1.030 [employer] Transitional cells LM Ql (Urine sed) [employer] Urobilinogen (U) [Mass/Vol] 0.[address] [employer] WBC LM.HPF (Urine sed) [#/Area] [employer] Vital Signs Date Time Vital Sign Value Performing Clinician Faci lity 12-11-2024 12:16-0400 Body mass index (BMI) [Ratio] 30.39 kg/m2 Azeb Proctor MD Work Phone: [facility] 12-11-2024 12:16-0400 Body weight 83.46 kg Azeb Proctor MD Work Phone: [facility] 12-11-2024 12:16-0400 Diastolic blood pressure 74 mm[Hg] Azeb Proctor MD Work Phone: [facility] 12-11-2024 12:16-0400 Systolic blood pressure 122 mm[Hg] Azeb Proctor MD Work Phone: [facility] 03-13-2019 10:46-0500 BMI (Body Mass Index) 31.18 kg/m2 [facility] 03-13-2019 10:46-0500 Body Temperature 97.81 [degF] [facility] 03-13-2019 10:46-0500 Body weight 85 kg [facility] 03-13-2019 10:46-0500 BP Diastolic 82 mm[Hg] [facility] 03-13-2019 10:46-0500 BP Systolic 140 mm[Hg] [facility] 03-13-2019 10:46-0500 Pulse (Heart Rate) 104 /min [employer] 03-13-2019 10:46-0500 Pulse Oximetry 95 % [facility] 03-13-2019 10:46-0500 Respiratory Rate 16 /min [facility] Encounters Encounter Date Encounter Type Care Provider Facility Start: 02-07-2025 ambulatory Azeb Erazo y:[facility] Start: 02-06-2025 Encounter for other preprocedural examination Azeb Proctor [facility] Start: 01-17-2025 End: 01-17-2025 ambulatory JOSHUA KONG Facility:[facility] Start: 01-13-2025 End: 01-13-2025 ambulatory AZEB PROCTOR [facility] Start: 01-03-2025 End: 01-03-2025 ambulatory JOSHUA KONG Facility:[facility] Start: 12-11-2024 End: 12-11-2024 ambulatory AZEB PROCTOR Facility:[facility] Start: 12-11-2024 Encounter for gynecological examination (general) (routine) without abnormal findings AZEB PROCTOR [facility] Start: 12-11-2024 End: 12-11-2024 Patient encounter procedure Azeb Proctor MD Work Phone: OB/Gynecology Comment on above: Encounter for gyneco logical examination (general) (routine) without abnormal findings (Primary Dx); Screening for cervical cancer; Encounter for screening for human papillomavirus (HPV); Malaise and fatigue; Menorrhagia with regular cycle Start: 12-11-2024 End: 12-11-2024 Patient encounter status Azeb Proctor MD Work Phone: [facility] Start: 09-25-2024 End: 09-25-2024 ambulatory [facility] Start: 09-25-2024 End: 09-25-2024 ambulatory [facility] Start: 03-13-2019 End: 03-13-2019 Office outpatient visit 15 minutes Joshua Kong Work Phone: [facility] Comment on above: Urinary tract infect ion with hematuria, site unspecified (Primary Dx); Acute cystitis without hematuria Procedures Date Procedure Procedure Detail Performing Clinician Start: 03-13-2019 Urnls dip stick/tabl et rgnt non-auto w/o micrscp Joshua Kong Work Phone: Start: 03-13-2019 Culture bacterial quanttative colony count urine Joshua Kong Work Phone: Start: 05-24-2011 End: 01-13-2012 H/O: section Previous delivery affecting , antepartum Azeb Proctor MD Work Phone: Plan of Treatment Date Care Activity Detail Author Start: 04-09-2029 Urine microalbumin profile DTaP,Tdap,Td Vaccine (2 - Td or Tdap) [facility] Start: 09-25-2025 Screening for malign ant neoplasm of breast Mammogram Screening [facility] Start: 01-17-2025 End: 01-17-2025 Patient encounter procedure 01/17/2025 11:30 AM EDT Office Visit OB/Gynecology [address] [place], [place] [id number] Azeb Proctor MD [address] [place], [place] [id number] EMB Dx: Abnormal uterine bleeding (AUB) [N93.9] OB/Gynecology Comment on above: EMB Dx: Abnormal teena rine bleeding (AUB) [N93.9] Start: 12-23-2024 Influenza vaccination Influenza Vacc ine (#1) [facility] Start: 12-11-2024 End: 03-12-2025 25-hydroxyvitamin D3 [Mass/volume] in Serum or Plasma VITAMIN D 25 HYDROXY Lab Routine Malaise and fatigue Menorrhagia with regular cycle Expected: 12/11/2024, Expires: 03/12/2025 [facility] Comment on above: Expected: 12/11/2024 , Expires: 03/12/2025 Start: 12-11-2024 End: 03-12-2025 CBC panel - Blood by Automated count COMPLETE BLOOD COUNT Lab Routine Malaise and fatigue Menorrhagia with regular cycle Expected: 12/11/2024, Expires: 03/12/2025 [facility] Comment on above: Expected: 12/11/2024 , Expires: 03/12/2025 Start: 12-11-2024 End: 03-12-2025 Iron and Iron binding capacity panel - Serum or Plasma IRON AND TIBC Lab Routine Malaise and fatigue Menorrhagia with regular cycle Expected: 12/11/2024, Expires: 03/12/2025 [facility] Comment on above: Expected: 12/11/2024 , Expires: 03/12/2025 Start: 12-11-2024 End: 12-11-2025 US Pelvis PELVIC US [facility] Routine Menorrhagia with regular cycle Expected: 12/11/2024, Expires: 12/11/2025 [facility] Work Phone: Comment on above: Expected: 12/11/2024 , Expires: 12/11/2025 Start: 08-14-2022 Screening for malign ant neoplasm of cervix Cervical Cancer Screening [facility] Start: 2021 Diabetes Screening Diabetes Screenin [facility] Start: 2021 Lipid panel Lipid Screening [facility] Start: 2021 Screening for malign ant neoplasm of colon [facility] Start: 12-23-2018 Influenza vaccination INFLUENZA VACC INE (#1) [facility] Start: 2016 Fasting lipid profile LIPID SCREENIN [facility] Start: 2016 Screening mammography MAMMOGRA M SCREENING DISCUSSION [facility] Start: 1997 Screening for malign ant neoplasm of cervix PAP SMEAR DISCUSSION [facility] Start: 11-15-1995 Hepatitis B Vaccine (1 of 3 - 19+ 3-dose series) Hepatitis B Vaccine (1 of 3 - 19+ 3-dose series) [facility] Start: 11-15-1995 Third diphtheria, tetanus and acellular pertussis (DTaP) vaccination TDAP (ADULT) [facility] Start: 1994 Anxiety Screening Anxiety Screening [facility] Start: 1994 Depression Screening Depression Scre ening [facility] Start: 1994 Hepatitis C screening Hepatitis C Sc reening [facility] Start: 1994 Tetanus vaccination [facility] Start: 1989 HIV screening HIV SCREENING DISCUSSI ON [facility] Bacteria identified Cx Nom (U) URINE CULTURE Microbiology Routine Acute cystitis without hematuria 03/13/2019 10:50 AM EST [facility] [place] Endometrial bx w/wo endocervix bx w/o dilat spx ENDOMETRIAL BIOPSY Procedures Routine Menorrhagia with regular cycle Ordered: 12/11/2024 [facility] Comment on above: Ordered: 12/11/2024 PAP TEST PAP TEST Lab [facility] Encounter for gynecological examination (general) (routine) without abnormal findings Screening for cervical cancer Encounter for screening for human papillomavirus (HPV) 12/11/2024 2:55 PM EDT [facility] Immunizations Immunization Date Immunization Notes Care Provider Fa woo 04-09-2019 influenza virus vacc ine, unspecified formulation Azeb Proctor MD Work Phone: [facility] Payers Date Payer Category Payer Self-pay 2024 [employer] BLUE ACCE SS PPO [id number] 2024 Unknown [id number] 2017 Unknown [employer] M [place] xxxxxxxxx 2017-Present [id number] 2015 Unknown [id number] 2014 Medicare [id number] 1975 Unknown [id number] 1975 Unknown [id number] 1976 Unknown [id number] 1976 Unknown [id number] Unknown [id number] Social History Date Type Detail Facility Start: 06-20-2011 End: 03-13-2019 Tobacco smoking status NHIS Former smoker [facility] Start: 03-13-2019 End: 12-11-2024 Alcohol intake Current drinker of alcohol (finding) [facility] Start: 03-23-2017 Alcohol Comment social ANDRZEJ Carter [facility] Start: 1975 Sex Assigned At Not on file A [facility] Start: 02-19-1997 End: 02-19-2007 History of tobacco use Current smoker [facility] Start: 02-19-1997 End: 02-19-2007 History of tobacco use Cigarette Smoker [facility] Start: 06-20-2011 End: 12-11-2024 Cigarettes smoked current (pack per day) - Reported 0.5 [facility] Start: 06-20-2011 Tobacco use and exposure Smoke less tobacco non-user [facility] Start: 12-11-2024 Tobacco use panel [facility] How often to you hav e a drink containing alcohol? 2-3 time sa week [facility] How many standard dr inks containing alcohol do you have on a typical day? 1 or 2 [facility] How often do you hav e 6 or more drinks on 1 occasion? Never [facility] Start: 03-25-2012 National Score (1-10 0), lower number is lower risk 47 [facility] Start: 05-10-2007 Alcohol Comment SOCIALLY,NOT W HILE [facility] Functional Status Date Assessment Result Facility 12-11-2024 Total score [AUDIT-C] 3 12/12/19 25 12:15 PM EDT Renae Kilgore MA [facility] 08-22-2013 Are you deaf, or do you have serious difficulty hearing No 08/22/2013 2:56 PM EDT Brina Perry MA No [facility] 08-22-2013 Are you blind, or do you have serious difficulty seeing, even when wearing glasses No 08/22/2013 2:56 PM RHONDAT Brina Perry MA No [facility] 08-22-2013 Do you have serious difficulty walking or climbing stairs No 08/22/2013 2:56 PM EDT Brina Perry MA No [facility] 08-22-2013 Do you have difficul ty dressing or bathing No 08/22/2013 2:56 PM EDT Brina Perry MA No [facility] 08-22-2013 Because of a physica l, mental, or emotional condition, do you have difficulty doing errands alone such as visiting a physician's office or shopping No 08/22/2013 2:56 PM EDT Brina Perry MA No [facility] Mental Status Date Assessment Result Facility 08-22-2013 Because of a physica l, mental, or emotional condition, do you have serious difficulty concentrating, remembering, or making decisions No 08/22/2013 2:56 PM EDT Brina Perry MA No [facility] Clinical Note 01-31-2025 Note Date & Type Note Facility 01-31-2025 Note [facility] Medical Records Department [address] [place] [address] History Physical Exam 01/31/25 1236 MR#: [id number] Acct: [id number] Name: MELLISA CRUZ Rep #: [id number] : 1975 49 From: Azeb Proctor MD PCP: Status:PRE SDC Location[place] [facility] [place] History and Physical Date of Admission: 02/07/25 HPI: The patient is a 49 year old female presenting for pre-operative visit. She is scheduled for hysteroscopy with endometrial ablation, for menorrhagia with regular cycle . Procedure discussed along with risks, benefits and complications. Other alternatives discussed for management. Consent form signed? Yes. ? PAST MEDICAL HISTORY PAST MEDICAL HISTORYDiagnosisDate???Abnormal glandular Papanicolaou smear of [id number]???Abn. Pap smear (cervix)???PMH - PAST MEDICAL HISTORY OF?POST DVT???PMH - PAST MEDICAL HISTORY OF?MISCARRIAGE X6???Urinary tract infection, site not specified?Recurrent UTI's ? PAST SURGICAL HISTORY PAST SURGICAL HISTORYProcedureLateralityDate??? DELIVERY ONLY???07/23/2009,2007,2011???, low transverseX2???DILATION CURETTAGE DX /THER NONOBSTETRIC???2004,2009???Dilation curettage ???LIG/TRNSXJ FLP TUBE ABDL/VAG APPR UNI/BI???12/29/11???Tubal ligation ? CURRENT MEDICATIONS Current Outpatient MedicationsMedicationSigDispenseRefill??? BEEFBeef organ?tranexamic acid (LYSTEDA) 650 mg tabletTake 2 tablets by mouth three times a day. for 5 days when your period cailuy03???No current facility-administered medications for this visit. ? ALLERGIES: Patient has no known allergies. ??? PERSONAL HISTORY: [SOCIAL HISTORY] [SOCIAL HISTORY] Social History Tobacco Use ??? Smoking status: Former ? Current packs/day: 0.00 ? Average packs/day: 0.5 packs/day for 10.0 ye ars (5.0 ttl pk-yrs) ? Types: Cigarettes ? Start date: 02/19/1997 ? Quit date: 02/19/2007 ? Years since quittin.9 ??? Smokeless tobacco: Never Vaping Use ??? Vaping status: Never Used Substance Use Topics ??? Alcohol use: Yes ? Comment: SOCIALLY,NOT WHILE ??? Drug use: No ??? FAMILY HISTORY: FAMILY HISTORY FAMILY HISTORY ProblemRelationAge of Onset???DiabetesFather?HypertensionF ather?HeartFather? [place] ???DiabetesMother?Colon [id number]???Ovarian [id number]???other (LYMPHEDMA)Mother?COPDMaternal Grandmother?CancerMaternal Grandfather? LUNG CANCER???HypertensionPaternal Grandmother?HeartPaternal Grandmother? [place]???CancerPaternal Grandfather? LUNG CANCER ? REVIEW OF SYMPTOMS: GENERAL: denies fevers or chills ENDOCRINOLOGY: has not been on steroids Cardiology : denies palpitations or chest pain Respiratory: denies SOB or cough Hematology: denies history of prolonged bleeding or easy bruising or VTE Allergy: Denies history of personal or family history of allergy to anesthesia ??? PHYSICAL EXAMINATION: ??? VITALS: Last menstrual period 11/22/2024. ??? GENERAL: The patient is well nourished, well hydrated in no acute distress. , The patient is oriented to time, place, and person. NECK: Supple. No lynphadenopathy, normal thyroid, no thyromegaly. LUNGS: Clear to auscultation bilaterally. no wheezes, rhonchi or rales HEART: Regular rate and rhythm, Normal heart sounds, and No murmurs or gallops ??? IMPRESSION: menorrhagia with regula cycle ??? PLAN: The risks/benefits/alternatives and personal involved for the planned hysteroscopy with endometrial ablation were reviewed with the patient. Her questions were answered to her satisfaction and she desires to proceed. Consent was signed. I reviewed with her postop instructions and expectations. ? I have reviewed and updated past medical and surgical history, medications and allergies Assessment Plan Assessment/Plan (1) Menorrhagia with regular cycle: 01/31/25 1236 Cosigner Signature (if applicable): CC: Dr. Azeb Proctor MD Signed [facility] Progress note 01-17-2025 Note Date & Type Note Facility 01-17-2025 Note HNO ID: [id number] Author: AZEB PROCTOR MD Service: ? Author Type: Physician Type: Progress Notes Filed: 01/17/2025 12:27 Note Text: Mellisa is a 49 year old who presents today for an endometrial biopsy for abnormal uterine bleeding. test: negative UNIVERSAL PROTOCOL / SAFETY CHECKLIST Procedure to be Performed: EMB Sign In: A Moment of CARE was completed. Appropriate PPE (Personal Protective Equipment) worn by all providers involved with the procedure. Special equipment not required. Patient/Surrogate Stated/Verified: Patient name, Date of , Relevant allergies, and The intended procedure Time Out: Relevant labs, photos, and/or imaging studies have been reviewed. Intended patient and procedure match the source document(s) (e.g. consent, HANDP, associated studies [imaging, pathology]) are not applicable. Consent obtained and matches the intended procedure. Yes. Correct side/site is not applicable. Medications required for this procedure are verified. Fire risk assessed and is not applicable. Implants: are not applicable. Sign Out: Specimens are all correctly labeled and sent. All instruments, equipment, possible retained foreign bodies are accounted for. Yes. The post-procedure plan of care has been communicated to the patient or surrogate. PROCEDURE: EXTERNAL GENITALIA: Normal in appearance without lesions VAGINA: Normal in appearance without lesions BIOPSY: Speculum placed into the vagina with excellent visualization of the cervix. Cervix cleaned with betadine. Anterior lip of cervix grasped with single toothed tenaculum. Uterus sounded to 10 cm. Pipelle inserted into the uterus without difficulty and endometrial biopsy obtained. Specimen labeled and sent to pathology. Procedure Summary: Patient tolerated procedure well. ASSESSMENT: abnormal uterine bleeding PLAN: Specimens labeled and sent to Pathology. Will notify patient of results in 1-2 weeks. Post-procedure instructions reviewed and written material given to the patient. desires endometrial ablation Reviewed US done 01/13 Azeb Proctor MD [facility] Progress note 12-11-2024 Note Date & Type Note Facility 12-11-2024 Note HNO ID: [id number] Author: AZEB PROCTOR MD Service: ? Author Type: Physician Type: Progress Notes Filed: 12/11/2024 13:13 Note Text: Mellisa is a 49 year old who presents for an annual gynecologic exam with complaints, heavy menses, brain fog, fatigue, some hot flashes. Bleeds through protection at times Still get period: Yes Bleeding amount bothersome: Yes Bleeding between periods: No Period symptoms: Cramps; Mood change Menopause symptoms: Hot flashes Time with current partner: 20 years Number of lifetime partners: 10 control frequency: Never HPV vaccine: No; HPV:negative Last pap smear: 02/11/2021 History of abnormal pap: No, all prior PAP smears have been normal Bothersome pelvic pain: No Last mammogram: 2024 OB History [id number] Para4 Term4 Preterm0 AB6 Living4 SAB6 IAB0 Ectopic0 Multiple0 Live Births4 It Consulting Manager History LMP: 11/22/2024 (Exact Date), Having periods Age at Menarche: 17 Age at First : Age at Menopause: It 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 X6 Urinary tract infection, site not specified Recurrent UTI's PAST SURGICAL HISTORY Procedure Laterality Date DELIVERY ONLY 07/23/2009,2007,2011 , low transverseX2 DILATION AND CURETTAGE DXAND/THER NONOBSTETRIC 2004,2009 Dilation AND curettage LIG/TRNSXJ FLP TUBE ABDL/VAG APPR UNI/BI 12/29/11 Tubal ligation FAMILY HISTORY Problem Relation Age of Onset Diabetes Father Hypertension Father Heart Father [place] Diabetes Mother Colon Cancer Mother 69 Ovarian cancer Mother 77 other (LYMPHEDMA) Mother COPD Maternal Grandmother Cancer Maternal Grandfather LUNG CANCER Hypertension Paternal Grandmother Heart Paternal Grandmother HI Cancer Paternal Grandfather LUNG CANCER SOCIAL HISTORY Social History Tobacco Use Smoking status: Former Current packs/day: 0.00 Average packs/day: 0.5 packs/day for 10.0 years (5.0 ttl pk-yrs) Types: Cigarettes Start date: 02/19/1997 Quit date: 02/19/2007 Years since quittin.8 Smokeless tobacco: Never Vaping Use Vaping status: Never Used Substance Use Topics Alcohol use: Yes Comment: SOCIALLY,NOT WHILE Drug use: No REVIEW OF SYSTEMS Abdomen: No abdominal pain, nausea, vomiting, diarrhea, or constipation. No bloating, early satiety, indigestion, or increased flatulence. Bladder: No dysuria, gross hematuria, urinary frequency, urinary urgency, or incontinence. Breast: No breast lumps, nipple d/c, overlying skin changes, redness or skin retraction. Allergies and current medication updated:Yes SENSITIVE EXAM: The sensitive examination was discussed with the Patient or Patient's Authorized Purchasing And Fiscal Clerk. As applicable, any other physician, advance practice provider, medical student, or other health professional student that will be observing or involved in the sensitive examination for educational or training purposes was discussed with the Patient or Authorized Purchasing And Fiscal Clerk. The Patient or Authorized Purchasing And Fiscal Clerk has agreed to proceed with the sensitive examination. (Sensitive examination includes inspection and/or palpation of the breasts, pelvis, prostate and anorectal regions). EXAM: BP 122/74 Wt 184 lb (83.5kg) LMP 11/22/2024 GENERAL: pleasant, female in no apparent distress HEENT: Normocephalic, atraumatic, mucus membranes moist, and no lesions NECK: Supple, full range of motion, no adenopathy, and thyroid normal DERMATOLOGY: Normal, without lesions, non-icteric, and non-hirsute BREAST: soft, non-tender, symmetric, no dominant mass, normal nipple-areolar complex, no lymphadenopathy, and no nipple discharge CHEST: Normal inspiratory effort ABDOMEN: soft, non-tender, and no masses PELVIC: external genitalia normal, normal Bartholin's glands, urethra, Vander's glands, no vulvar lesions, no cervical lesions, good vaginal support, physiologic discharge present, normal appearing perineal body and perianal region BIMANUAL: uterus normal size, shape and consistency, no adnexal masses, and non-tender RECTOVAGINAL:deferred NEURO: alert and oriented x3,exam grossly non-focal EXTREMITIES: normal ASSESSMENT/PLAN: 1) Health maintenance: Pap done with HPV. Mammogram up to date . Colon cancer screening: recommended 2) Contraception: tubal sterilization. Contraceptive options reviewed and information provided. 3) STD screening: Declined STI check. 4) Follow up one year or sooner as needed menorrhagia- recommend workup, interested (more content not included)... [facility] History of Present illness Narrative 12-11-2024 Azeb Proctor MD - 12/11/2024 12:11 PM EDT Note Date & Type Note Facility 12-11-2024 History of Presen t illness Narrative Mellisa is a 49 year old who presents for an annual gynecologic exam with complaints, heavy menses, brain fog, fatigue, some hot flashes. Bleeds through protection at times Still get period: Yes Bleeding amount bothersome: Yes Bleeding between periods: No Period symptoms: Cramps; Mood change Menopause symptoms: Hot flashes Time with current partner: 20 years Number of lifetime partners: 10 control frequency: Never HPV vaccine: No; HPV:negative Last pap smear: 02/11/2021 History of abnormal pap: No, all prior PAP smears have been normal Bothersome pelvic pain: No Last mammogram: 2024 OB History [id number] Para4 Term4 Preterm0 AB6 Living4 SAB6 IAB0 Ectopic0 Multiple0 Live Births4 It Consulting Manager History LMP: 11/22/2024 (Exact Date), Having periods Age at Menarche: 17 Age at First : Age at Menopause: It 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 X6 Urinary tract infection, site not specified Recurrent UTI's PAST SURGICAL HISTORY Procedure Laterality Date DELIVERY ONLY 07/23/2009,2007,2011 , low transverseX2 DILATION & CURETTAGE DX&/THER NONOBSTETRIC 2004,2009 Dilation & curettage LIG/TRNSXJ FLP TUBE ABDL/VAG APPR UNI/BI 12/29/11 Tubal ligation FAMILY HISTORY Problem Relation Age of Onset Diabetes Father Hypertension Father Heart Father [place] Diabetes Mother Colon Cancer Mother 69 Ovarian cancer Mother 77 other (LYMPHEDMA) Mother COPD Maternal Grandmother Cancer Maternal Grandfather LUNG CANCER Hypertension Paternal Grandmother Heart Paternal Grandmother HI Cancer Paternal Grandfather LUNG CANCER SOCIAL HISTORY Social History Tobacco Use Smoking status: Former Current packs/day: 0.00 Average packs/day: 0.5 packs/day for 10.0 years (5.0 ttl pk-yrs) Types: Cigarettes Start date: 02/19/1997 Quit date: 02/19/2007 Years since quittin.8 Smokeless tobacco: Never Vaping Use Vaping status: Never Used Substance Use Topics Alcohol use: Yes Comment: SOCIALLY,NOT WHILE Drug use: No REVIEW OF SYSTEMS Abdomen: No abdominal pain, nausea, vomiting, diarrhea, or constipation. No bloating, early satiety, indigestion, or increased flatulence. Bladder: No dysuria, gross hematuria, urinary frequency, urinary urgency, or incontinence. Breast: No breast lumps, nipple d/c, overlying skin changes, redness or skin retraction. Allergies and current medication updated:Yes SENSITIVE EXAM: The sensitive examination was discussed with the Patient or Patient's Authorized Purchasing And Fiscal Clerk. As applicable, any other physician, advance practice provider, medical student, or other health professional student that will be observing or involved in the sensitive examination for educational or training purposes was discussed with the Patient or Authorized Purchasing And Fiscal Clerk. The Patient or Authorized Purchasing And Fiscal Clerk has agreed to proceed with the sensitive examination. (Sensitive examination includes inspection and/or palpation of the breasts, pelvis, prostate and anorectal regions). EXAM: BP 122/74 Wt 184 lb (83.5kg) LMP 11/22/2024 GENERAL: pleasant, female in no apparent distress HEENT: Normocephalic, atraumatic, mucus membranes moist, and no lesions NECK: Supple, full range of motion, no adenopathy, and thyroid normal DERMATOLOGY: Normal, without lesions, non-icteric, and non-hirsute BREAST: soft, non-tender, symmetric, no dominant mass, normal nipple-areolar complex, no lymphadenopathy, and no nipple discharge CHEST: Normal inspiratory effort ABDOMEN: soft, non-tender, and no masses PELVIC: external genitalia normal, normal Bartholin's glands, urethra, Vander's glands, no vulvar lesions, no cervical lesions, good vaginal support, physiologic discharge present, normal appearing perineal body and perianal region BIMANUAL: uterus normal size, shape and consistency, no adnexal masses, and non-tender RECTOVAGINAL:deferred NEURO: alert and oriented x3,exam grossly non-focal EXTREMITIES: normal ASSESSMENT/PLAN: 1) Health maintenance: Pap done with HPV. Mammogram up to date . Colon cancer screening: recommended 2) Contraception: tubal sterilization. Contraceptive options reviewed and information provided. 3) STD screening: Declined STI check. 4) Follow up one year or sooner as needed menorrhagia- recommend workup, interested in ablation. Pelvic US and emb and labs ordered. Azeb Proctor MD documented in this encounter [facility] Evaluation note Note Date & Type Note Facility Evaluation note Diagnosis Encounter for gynecological examination (general) (routine) without abnormal findings- Primary Screening for cervical cancer Screening for malignant neoplasm of the cervix Encounter for screening for human papillomavirus (HPV) Special screening examination for human papillomavirus (HPV) Malaise and fatigue Other malaise and fatigue Menorrhagia with regular cycle Excessive or frequent menstruation documented in this encounter [facility] History of Present Illness * Joshua Kong MD - 03/13/2019 10:50 AM EST Chief Complaint Patient presents with Urinary Frequency Urinary Tract Infection (UTI): She noticed her symptoms began 4 day(s). She denies back pain, admits to having frequency, admits to having painful urination, and she denies blood in her urine that she can see. HPI UTI Patient states she started having burning and frequency on urination about 4 days ago. Has not noticed any hematuria. Symptoms are not resolving. Not on File Outpatient Medications Prior to Visit Medication Sig Dispense Refill meloxicam 15 MG Tab tablet Take 1 tablet by mouth daily. (Patient not taking: Reported on 03/13/2019) 30 tablet 1 No facility-administered medications prior to visit. No past medical history on file. family history includes Colorectal Cancer in her mother; Diabetes in her father and mother; Heart Disease - Other in her father. reports that she has quit smoking. She has never used smokeless tobacco. She reports current alcohol use. She reports that she does not use drugs. No past surgical history on file. Review of Systems Visit Vitals BP 140/82 Pulse 104 Temp 97.8 F (36.6 C) (Temporal) Resp 16 Wt 85 kg (187 lb 6.4 oz) SpO2 95% BMI 31.18 kg/m Review of Systems Constitutional: Negative for fever. Respiratory: Negative for shortness of breath. Cardiovascular: Negative for chest pain. Genitourinary: Negative for dysuria, flank pain, frequency and hematuria. Neurological: Negative. Negative for dizziness and headaches. Psychiatric/Behavioral: Negative. Physical Exam Physical Exam Constitutional: General: She is not in acute distress. Cardiovascular: Rate and Rhythm: Normal rate and regular rhythm. Pulmonary: Effort: Pulmonary effort is normal. Breath sounds: Normal breath sounds. Abdominal: Tenderness: There is tenderness in the suprapubic area. There is no right CVA tenderness or left CVA tenderness. Neurological: General: No focal deficit present. Mental Status: She is alert and oriented to person, place, and time. Assessment & Plan Problem List Items Addressed This Visit None Visit Diagnoses Urinary tract infection with hematuria, site unspecified - Primary Relevant Orders POCT URINALYSIS DIPSTICK NON AUTOMATED (Completed) Acute cystitis without hematuria Relevant Medications phenazopyridine 200 MG Tab tablet nitrofurantoin, macrocrystal-monohydrate, 100 MG Cap Other Relevant Orders URINE CULTURE Joshua Kong MD 03/13/2019, 11:19 AM * Cristy Boyer LPN - 03/13/2019 10:50 AM EST Urinary Tract Infection (UTI): She noticed her symptoms began 4 day(s). She denies back pain, admits to having frequency, admits to having painful urination, and she denies blood in her urine that she can see. documented in this encounter Assessments Diagnosis Urinary tract infection with hematuria, site unspecified- Primary Acute cystitis without hematuria Acute cystitis Summary Purpose Family History No Family History Records FoundNo Family History Records FoundNo Family History Records FoundNo Family History Records FoundNo Family History Records FoundNo Family History Records Found Advance Directives No Advanced Directives Records FoundNo Advanced Directives Records FoundNo Advanced Directives Records FoundNo Advanced Directives Records FoundNo Advanced Directives Records FoundNo Advanced Directives Records Found Additional Source Comments Reason for Visit (unrecogniz ed section and content) Reason Comments Urinary Frequency Reason Comments Yearly Exam INFORMATION SOURCE (unrecogn ized section and content) DATE CREATED AUTHOR 04/02/2019 [facility] DATE CREATED AUTHOR AUTHOR'S ORGANIZ ATION 10/02/2024 [facility] DATE CREATED AUTHOR AUTHOR'S ORGANIZ ATION 10/02/2024 [facility] DATE CREATED AUTHOR AUTHOR'S ORGANIZ ATION 01/24/2025 [facility] DATE CREATED AUTHOR AUTHOR'S ORGANIZ ATION 01/30/2025 [facility] DATE CREATED AUTHOR AUTHOR'S ORGANIZ ATION 02/06/2025 [facility] Source Comments (unrecognize d section and content) In the event this informatio n is protected by the Federal Confidentiality of Alcohol and Drug Abuse Patient Records regulations: The Federal rules restrict any use of the information to criminally investigate or prosecute any alcohol or drug abuse patient.[facility] Care Teams (unrecognized sec tion and content) [employer] Con[employer]or [employer] Relationship Specialty Start Date End Date Joshua Kong PCP - General 03/27/08 FOR RECORDS PERTAINING TO PATIENTS WHO ARE OR HAVE BEEN ENROLLED IN A CHEMICAL DEPENDENCY/SUBSTANCEABUSE PROGRAM, SOME INFORMATION MAY BE OMITTED. This clinical summary was aggregated from multiple sources. Caution should be exercised in using it in the provision of clinical care. This summary normalizes information from multiple sources, and as a consequence, information in this document may materially change the coding, format and clinical context of patient data. In addition, data may be omitted in some cases. CLINICAL DECISIONS SHOULD BE BASED ON THE PRIMARY CLINICAL RECORDS. [email or web address] provides no warranty or guarantee of the accuracy or completeness of information in this document.
--- OUTSIDE RECORDS SUMMARY | 2025-02-07 08:38 | XMS RPT_ITS | CCD ---
Author Organization [facility] Inform ion Partnership [facility] Care Team Providers Care Inside Horticultural Specialty Grower Name Role Phone Joshua Kong Primary Care Provider [phone] ENRIQUE HOOD Referring Unavaila ble ENRIQUE HOOD Attending Unavaila ble MIKLATOYA RYLAND Primary Care Unavailable MIKALOV RYLAND Primary Care Unavailable SYSTEM, PROVIDER NOT IN Referring Unavaila ble SYSTEM, PROVIDER NOT IN Attending Unavaila ble SYSTEM, PROVIDER NOT IN Referring Unavaila ble SYSTEM, PROVIDER NOT IN Attending Unavaila ble TAMIA, RYLAND Primary Care Unavailable Joshua Kong Primary Care Provider AZEB PROCTOR Attending Unavailable JOSHUA KONG Primary Care Unavailable [...] width (RBC) [Ratio] 13.1 % Normal 11.6-14.6 [facility] Comment on above: Performed By: #### L 100.0500 #### [facility] [address] [place], [address] Hematocrit (Bld) [Volume fraction] 41.5 % Normal 37-47 [facility] Comment on above: Performed By: #### L 100.0500 #### [facility] [address] [place], [address] Hemoglobin (Bld) [Mass/Vol] 14.4 g/dL Normal 12.0-15.0 [facility] Comment on above: Performed By: #### L 100.0500 #### [facility] [address] [place], [address] MCH (RBC) [Entitic mass] 29.0 pg Normal 27.0-32.0 [facility] Comment on above: Performed By: #### L 100.0500 #### [facility] [address] [place], [address] MCHC (RBC) [Mass/Vol] 34.7 g/dL Normal 32-36 [facility] Comment on above: Performed By: #### L 100.0500 #### [facility] [address] [place], [address] MCV (RBC) [Entitic vol] 83.5 fL Normal 81-99 [facility] Comment on above: Performed By: #### L 100.0500 #### [facility] [address] [place], [address] Platelet mean volume (Bld) [Entitic vol] 9.5 fL Normal 6.2-12.0 [facility] Comment on above: Performed By: #### L 100.0500 #### [facility] [address] [place], [address] Platelets (Bld) [#/Vol] 240 10*3/uL Normal 150-450 [facility] Comment on above: Performed By: #### L 100.0500 #### [facility] [address] [place], [address] RBC (Bld) [#/Vol] 4.97 10*6/uL Normal 4.2-5.4 [facility] Comment on above: Performed By: #### L 100.0500 #### [facility] [address] [place], [address] RDW SD 39.7 fl Normal 35.1-43.9 [facility] Comment on above: Performed By: #### L 100.0500 #### [facility] [address] [place], [address] WBC (Bld) [#/Vol] 9.1 10*3/uL Normal 4.4-11.0 [facility] Comment on above: Performed By: #### L 100.0500 #### [facility] [address] [place], [address] CNOVon 01-17-2025 CNOV Office Visit (OBGYWM ) MELLISA CRUZ ([id number]) 1975 F Date Time Provider Department 01/17/25 [...] in 3 to 5 business days via [employer], unless a different method of communication was [...] Problem Relati (more content not included)... Normal [facility] HISTORY PHYSICALon HISTORY PHYSICAL HNO ID: [id number] Author: AZEB PROCTOR MD Service: ? Author [...] Comment: SOCIALLY,NOT WHILE Drug use: No Normal [facility] Pathology biopsy report Saman (Tiss)on 01-17-2025 AP DISCLAIMER Normal [facility] Comment on above: Order Comment: Ev dixon Type: TISSUE SPECIMEN Ordering Facility: [facility] Address: [address] [place] [address] Result Comment: Venu gaxiola Developed Test (LDT) Disclaimer: Performance characteristics of immunohistochemical, immunofluorescent, and chromogenic in-situ hybridization tests have been determined by the performing laboratory within the [facility] Department of Pathology and Laboratory Medicine ([facility], [facility], [facility], [facility], [facility], [facility], or [facility]) in a manner consistent with CLIA requirements. One or more of these tests may not have been cleared or approved by the FDA. The [facility] Department of Pathology and Laboratory Medicine is regulated under CLIA as qualified to perform high-complexity testing. These tests are used for clinical purposes. These should not be regarded as investigational or for research. Positive and negative controls stain appropriately. Performed By: #### 6 6121-5 #### [facility] CLIA [id number] [address] [place] [address] [place] [address] [place] CASE REPORT Normal [facility] Comment on above: Order Comment: Speci men Type: TISSUE SPECIMEN Ordering Facility: [facility] Address: [address] [place] [address] Result Comment: [facility] Pathology Report Case: [id number] Authorizing Provider: Azeb Proctor MD Collected: 01/17/2025 11:52 AM Ordering Location: OB/Gynecology Received: 01/17/2025 04:44 PM Pathologist: Cecilio Floyd MD, PhD Specimen: Endometrium, Biopsy Performed By: #### 6 6121-5 #### [facility] CLIA [id number] [address] [place] [address] OF [facility] CLINICAL HISTORY menorrhagia with regular cycle Normal [facility] Comment on above: Order Comment: Speci men Type: TISSUE SPECIMEN Ordering Facility: [facility] Address: [address] [place] [address] Performed By: #### 6 6121-5 #### [facility] CLIA [id number] [address] [place] [address] FINAL DIAGNOSIS Normal [facility] Comment on above: Order Comment: Speci men Type: TISSUE SPECIMEN Ordering Facility: [facility] Address: [address] [place] [address] Result Comment: A. E ndometrium, biopsy: - Proliferative endometrium with stromal breakdown. at 1138 EDT Performed By: #### 6 6121-5 #### [facility] CLIA [id number] [address] [place] [address] OF [facility] FINAL PERFORMING LAB Normal [facility] Comment on above: Order Comment: Speci men Type: TISSUE SPECIMEN Ordering Facility: [facility] Address: [address] [place] [address] Result Comment: Diag nostic interpretation performed at: [facility], [address] [place] [address] CLIA# [id number] Woven Wood Shade Assembler: Jhon Fu MD Performed By: #### 6 6121-5 #### [facility] CLIA [id number] [address] [place] [address] [place] GROSS DESCRIPTION Normal [facility] Comment on above: Order Comment: Speci men Type: TISSUE SPECIMEN Ordering Facility: [facility] Address: [address] [place] [address] Result Comment: A. E ndometrium, Biopsy Received in formalin are multiple jewell to jewell-brown, soft feathery segments of tissue admixed with mucinous material and red-brown hemorrhagic material aggregating to 2.1 x 2.1 x 0.2 cm. Totally submitted in one cassette. DB January 17, 2025 7:30 PM Gross examination performed at [facility], [address] [place] [address] Performed By: #### 6 6121-5 #### [facility] [place] [id number] [address] [place] [address] [place] US PELVIC TRANSABDOMINAL [...] on MonJan 13, 2025 3:47:29 PM EDT [facility] Comment on above: Order Comment: Pt to bring order Injury/Trauma or Illness?:Illness/Other How long have you had these symptoms (acute/chronic)?:Acute Reason for exam?:AUB History of cancer?:unknown Surgeries, chemotherapy, or radiation?:c sections Type of Exam?:Initial Additional signs and symptoms?:no 25(OH)D3 [facility] 2024 25-hydroxyvitamin D3 [Mass/Vol] 81.0 ng/mL High 31.0-80.0 [facility] Comment on above: Order Comment: Ev dixon Type: BLOOD SPECIMEN Ordering Facility: [facility] Address: [address] [place] [address] Result Comment: Clas sification of 25 [place] Vitamin D status: Deficiency/Insufficiency: < or = 30 ng/ml. Sufficiency/Optimal Levels: 31-80 ng/mL Toxicity: > 100 ng/mL. Test performed by chemiluminescent immunoassay. Performed By: #### 1 989-3 #### [facility] CLIA [id number] [address] [place] [address] [place] CBC panel Auto (Bld)on 01-03 Erythrocyte distribution width (RBC) [Ratio] 13.1 % Normal 11.5-15.0 [facility] Comment on above: Order Comment: Ev dixon Type: BLOOD SPECIMEN Ordering Facility: [facility] Address: [address] [place] [address] Performed By: #### 5 8410-2 #### [facility] CLIA [id number] [address] [place] [address] [place] Hematocrit (Bld) [Volume fraction] 39.3 % Normal 36.0-46.0 [facility] Comment on above: Order Comment: Ev dixon Type: BLOOD SPECIMEN Ordering Facility: [facility] Address: [address] [place] [address] Performed By: #### 5 8410-2 #### [facility] CLIA [id number] [address] [place] [id number] [place] Hemoglobin (Bld) [Mass/Vol] 13.7 g/dL Normal 11.5-15.5 [facility] Comment on above: Order Comment: Speci men Type: BLOOD SPECIMEN Ordering Facility: [facility] Address: [address] [place] [address] Performed By: #### 5 8410-2 #### [facility] CLIA [id number] [address] [place] [id number] [place] MCH (RBC) [Entitic mass] 29.3 pg Normal 26.0-34.0 [facility] Comment on above: Order Comment: Speci men Type: BLOOD SPECIMEN Ordering Facility: [facility] Address: [address] [place] [address] Performed By: #### 5 8410-2 #### [facility] CLIA [id number] [facility] [place] [address] [place] MCHC (RBC) [Mass/Vol] 34.9 g/dL Normal 30.5-36.0 [facility] Comment on above: Order Comment: Speci men Type: BLOOD SPECIMEN Ordering Facility: [facility] Address: [address] [place] [address] Performed By: #### 5 8410-2 #### [facility] CLIA [id number] [facility] [place] [id number] [place] MCV (RBC) [Entitic vol] 84.0 fL Normal 80.0-100.0 [facility] Comment on above: Order Comment: Speci men Type: BLOOD SPECIMEN Ordering Facility: [facility] Address: [address] [place] [address] Performed By: #### 5 8410-2 #### [facility] CLIA [id number] [address] [place] [id number] [place] Nucleated RBC (Bld) [#/Vol] 10*3/uL Normal <0.01 [facility] Comment on above: Order Comment: Speci men Type: BLOOD SPECIMEN Ordering Facility: [facility] Address: [address] [place] [address] Performed By: #### 5 8410-2 #### [facility] CLIA [id number] [address] [place] [address] [place] Platelet mean volume (Bld) [Entitic vol] 8.8 fL Low 9.0-12.7 [facility] Comment on above: Order Comment: Speci men Type: BLOOD SPECIMEN Ordering Facility: [facility] Address: [address] [place] [address] Performed By: #### 5 8410-2 #### [facility] CLIA [id number] [facility] [place] [id number] [place] Platelets (Bld) [#/Vol] 217 10*3/uL Normal 150-400 [facility] Comment on above: Order Comment: Speci men Type: BLOOD SPECIMEN Ordering Facility: [facility] Address: [address] [place] [address] Performed By: #### 5 8410-2 #### [facility] CLIA [id number] [facility] [place] [id number] [place] RBC (Bld) [#/Vol] 4.68 10*6/uL Normal 3.90-5.20 [facility] Comment on above: Order Comment: Speci men Type: BLOOD SPECIMEN Ordering Facility: [facility] Address: [address] [place] [address] Performed By: #### 5 8410-2 #### [facility] CLIA [id number] [address] [place] [address] [place] WBC (Bld) [#/Vol] 7.03 10*3/uL Normal 3.70-11.00 [facility] Comment on above: Order Comment: Speci men Type: BLOOD SPECIMEN Ordering Facility: [facility] Address: [address] [place] [address] Performed By: #### 5 8410-2 #### [facility] CLIA [id number] [address] [place] [address] [place] Iron and Iron binding capaci ty panelon 01-03-2025 Iron [Mass/Vol] 43 ug/dL Normal 41-186 [facility] Comment on above: Order Comment: Speci men Type: BLOOD SPECIMEN Ordering Facility: [facility] Address: [address] [place] [address] Performed By: #### 5 0190-8 #### [facility] CLIA [id number] [address] [place] [address] STATES [facility] Iron binding capacity [Mass/Vol] 337 ug/dL Normal 232-386 [facility] Comment on above: Order Comment: Speci men Type: BLOOD SPECIMEN Ordering Facility: [facility] Address: [address] [place] [address] Performed By: #### 5 0190-8 #### [facility] CLIA [id number] [address] [place] [address] [place] Iron/TIBC [Molar ratio] 12.8 % Low 15.0-57.0 [facility] Comment on above: Order Comment: Speci men Type: BLOOD SPECIMEN Ordering Facility: [facility] Address: [address] [place] [address] Performed By: #### 5 0190-8 #### [facility] CLIA [id number] [address] [place] [address] [place] CNOVon 12-11-2024 CNOV Office Visit (OBGYWM ) MELLISA CRUZ ([id number]) 1975 F Date Time Provider Department 12/11/24 [...] pain: No Last mammogram: 2024 OB History Xnarpvc16 Para4 Term4 Preterm0 AB6 Living4 SAB6 IAB0 Ectopic0 Multiple0 Live Births4 Maple Sugar Maker History LMP: 11/22/2024 (Exact Date), Having periods Age at Menarche: 17 Age at First : Age at Menopause: Maple Sugar Maker History Comments: Sexual Activity: Yes; Male Contraception: [...] discussed with the Patient or Patient's Authorized Cable Ferryboat Operator. As applicable, any other physician, advance practice provider, medical student, or other health professional student that will be observing or involved in the sensitive examination for educational or training purposes was discussed with the Patient or Authorized Cable Ferryboat Operator. The Patient or Authorized Cable Ferryboat Operator has agreed to proceed with the sensitive [...] external genitalia normal, normal Bartholin's glands, urethra, Dauphin's glands, no vulvar lesions, no cervical lesions, good vaginal support, physiologic discharge present, normal appearing perineal body and perianal region BIMANUAL: uterus normal size, shape and consistency, no adnexal masses, and non-tender RECTOVAGINAL:deferred NEURO: alert and oriented x3,exam grossly non-focal EXTREMITIES: normal ASSESSMENT/PLAN: 1) Health maintenance: Pap done with HPV. Mammogram up to date . Col (more content not included)... Normal [facility] PAP TESTon 12-11-2024 ADEQUACY Normal [facility] Comment on above: Order Comment: Speci men Type: FLUID SPECIMEN Ordering Facility: [facility] Address: [address] [place] [address] Result Comment: Sati sfactory for interpretation. Transformation zone present Performed By: #### L [id number] #### [facility] CLIA [id number] [address] [place] [address] [place] CASE REPORT Normal [facility] Comment on above: Order Comment: Speci men Type: FLUID SPECIMEN Ordering Facility: [facility] Address: [address] [place] [address] Result Comment: Gyne cologic Cytology Report Case: [id number] Authorizing Provider: Azeb Proctor MD Collected: 12/11/2024 02:55 PM Ordering Location: OB/Gynecology Received: 12/11/2024 04:28 PM First Screen: Roselyn Alejandra, CT, ASCP Rescreen: Ibrahima Roque, OLIVA, ASCP Specimen: Pap Test, ThinPrep, Cervix Performed By: #### L [id number] #### [facility] CLIA [id number] [address] [place] [address] [place] CLINICAL HISTORY, CYTOLOGY, NEWSPAPER OR PERIODICAL EDITOR Routine Exam Normal [facility] Comment on above: Order Comment: Speci men Type: FLUID SPECIMEN Ordering Facility: [facility] Address: [address] [place] [address] Performed By: #### L [id number] #### [facility] CLIA [id number] [address] [place] [address] [place] FINAL PERFORMING LAB Normal [facility] Comment on above: Order Comment: Speci men Type: FLUID SPECIMEN Ordering Facility: [facility] Address: [address] [place] [address] Result Comment: Tech nical component, utility lineman screening performed at: [facility], [facility] [address] [address] CLIA: [id number] Diagnostic interpretation performed at: [facility], [address] [place] [address] CLIA# [id number] Woven Wood Shade Assembler: Jhon Fu MD Performed By: #### L [id number] #### [facility] CLIA [id number] [address] [place], [place] [address] [place] INTERPRETATION, CYTOLOGY, NEWSPAPER OR PERIODICAL EDITOR Normal [facility] Comment on above: Order Comment: Speci men Type: FLUID SPECIMEN Ordering Facility: [facility] Address: [address] [place] [address] Result Comment: Nega tive for intraepithelial lesion or malignancy. at 1155 EDT Performed By: #### L [id number] #### [facility] CLIA [id number] [address] [place] [address] [place] LMP 11/22/2024 Normal [facility] Comment on above: Order Comment: Speci men Type: FLUID SPECIMEN Ordering Facility: [facility] Address: [address] [place] [address] Performed By: #### L [id number] #### [facility] CLIA [id number] [address] [place], [place] [address] [place] PAP DISCLAIMER COMMENT The Pap Smear is a screening test for cervical cancer. False negative results occur with all screening tests, emphasizing the need for rescreening at recommended intervals, and clinical correlation. Normal [facility] Comment on above: Order Comment: Speci men Type: FLUID SPECIMEN Ordering Facility: [facility] Address: [address] [place] [address] Performed By: #### L [id number] #### [facility] CLIA [id number] [address] [place], [place] [address] [place] PAP AFTER SCHOOL CAREGIVER COMMENT This specimen has be en analyzed by the FDA-approved CoNarrative System, which uses digital imaging and an enhanced artificial intelligence image analysis algorithm to identify calderon of interest on the microscopic slide, to assist the research consultant and pathologist in evaluating cells on ThinPrep Pap tests. Following analysis, calderon of interest on the microscopic slide selected by the algorithm are reviewed by a research consultant. If a sample requires hierarchical review, the pathologist will review the same calderon of interest selected by the algorithm prior to final interpretation. Normal [facility] Comment on above: Order Comment: Speci men Type: FLUID SPECIMEN Ordering Facility: [facility] Address: [address] [place] [address] Performed By: #### L [id number] #### [facility] CLIA [id number] [address] [place] [address] OF [place] MM SCREENING ALVARADO BILATERALo n [...] sent to the patient regarding the results. [facility], along with the National Comprehensive Cancer Network and the [place] [employer] recommend annual screening mammograms for women age 40 and older. Workstation ID: [id number] Dictated by: AGUSTIN WILDER on MonSep 25, 2024 1:37:28 PM EDT Transcribed by: AGUSTIN WILDER on MonSep 25, 2024 1:37:28 PM EDT Finalized by: AGUSTIN WILDER on MonSep 25, 2024 1:37:28 PM EDT [facility] Comment on above: Order Comment: PT/FA X MUMPS AB, IGGon 04-01-2019 MUMPS ABS, IGG <9.0 Low Immune >10.9 [facility] Comment on above: Result Comment: (NOT E) Negative <9.0 Equivocal 9.0 - 10.9 Positive >10.9 A positive result generally indicates past exposure to Mumps virus or previous vaccination. PERFORMED AT [facility] Performed By: #### R UBL #### [place] [address] #### LMUMPG LVARCZ #### [place] [address] RUBELLA SCREENon 04-01-2019 RUBELLA SCREEN Positive Normal POSITIVE [facility] Comment on above: Result Comment: POSI TIVE RESULT INDICATES PRESUMED IMMUNITY Testing performed at [place] [address] Performed By: #### R UBL #### [place] [address] #### LMUMPG LVARCZ #### [place] [address] VARICELLA AB, IGMon 04-01-20 19 V-ZOSTER AB, IGM <0.91 Normal 0.00-0.90 [facility] Comment on above: Result Comment: (NOT E) Negative <0.91 Borderline 0.91 - 1.09 Positive >1.09 PERFORMED AT [facility] Performed By: #### R UBL #### [place] [address] #### LMUMPG, LVARCZ #### Testing performed at [address] [address] URINE CULTUREon 03-15-2019 Bacteria identified Cx Nom (U) SPECIMEN DESCRIPTION URINE CLEAN CATCH UA DIPSTICK LEUKOCYTE POSITIVE * Result Note: NITRITE NEGATIVE * CULTURE KLEBSIELLA PNEUMONIAE * Result Note: >100,000 C/C/ML * * Result Note: Testing performed at [place], [place] [address] * REPORT STATUS 03/15/2019 * Result Note: FINAL * ORGANISM KLEBSIELLA PNEUMONIAE * Result Note: KLEBSIELLA PNEUMONIAE * METHOD DOMENIC AMPICILLIN >=32 RESISTANT AMPICILLIN/SULBACTAM <=2 SUSCEPTIBLE CEFTRIAXONE <=1 SUSCEPTIBLE CEFAZOLIN <=4 SUSCEPTIBLE IMIPENEM <=0.25 SUSCEPTIBLE GENTAMICIN <=1 SUSCEPTIBLE TRIMETH-SULFA <=20 SUSCEPTIBLE AMOXICILLIN/CLAVULANIC A <=2 SUSCEPTIBLE NITROFURANTOIN 64 INTERMEDIATE PIPERACILLIN/TAZOBACTA M <=4 SUSCEPTIBLE LEVOFLOXACIN <=0.12 SUSCEPTIBLE ESBL NEGATIVE CEFTAZIDIME <=1 SUSCEPTIBLE Normal [facility]3] Comment on above: Performed By: #### A URNC #### Testing performed at [facility]3] [address] [place] [address] Testing performed at [facility] [address] [place] [address] POCT URINALYSIS DIPSTICK NON AUTOMATEDon 03-13-2019 Amorphous sediment LM Ql (Urine sed) [facility] Appearance (Body fld) cloudy [facility] Bacteria LM Ql (Urine sed) [facility] Bilirubin Ql (U) Negative [facility] Casts LM.LPF (Urine sed) [#/Area] [facility] Color (U) yellow [facility] Crystals LM Nom (Urine sed) [facility] Epithelial cells.squamous LM.HPF (Urine sed) [#/Area] [employer] [facility] Flow cytometry specialist review Saman (Unsp spec) [Interp] [facility] Ketones [Mass/Vol] Negative mg/dL [facility] Leukocyte esterase Qn (U) [facility] Leukocyte esterase Test strip Ql (U) trace [facility] Nitrite Ql (U) Negative [facility] HE[facility] TH pH (U) 6.0 [pH] [facility] POCT GLUCOSE, URINE Negative mg/dL [facility] Protein Ql (U) Negative mg/dL [facility] RBC LM.HPF (Urine sed) [#/Area] [facility] RBC Ql (U) Negative [facility] Specific gravity (U) [Rel density] 1.030 [facility] Transitional cells LM Ql (Urine sed) [facility] Urobilinogen (U) [Mass/Vol] 0.2 [facility] WBC LM.HPF (Urine sed) [#/Area] [facility] Vital Signs Date Time Vital Sign Value Performing Clinician Faci lity 12-11-2024 12:16-0400 Body mass index (BMI) [Ratio] 30.39 kg/m2 Azeb Proctor MD Work Phone: [facility] 12-11-2024 12:16-0400 Body weight 83.46 kg Azeb Proctor MD Work Phone: [facility] 12-11-2024 12:16-0400 Diastolic blood pressure 74 mm[Hg] Azeb Proctor MD Work Phone: [facility] 12-11-2024 12:16-0400 Systolic blood pressure 122 mm[Hg] Azeb Proctor MD Work Phone: [facility] 03-13-2019 10:46-0500 BMI (Body Mass Index) 31.18 kg/m2 [facility] 03-13-2019 10:46-0500 Body Temperature 97.81 [degF] [facility] 03-13-2019 10:46-0500 Body weight 85 kg [facility] 03-13-2019 10:46-0500 BP Diastolic 82 mm[Hg] [facility] 03-13-2019 10:46-0500 BP Systolic 140 mm[Hg] [facility] 03-13-2019 10:46-0500 Pulse (Heart Rate) 104 /min [facility] 03-13-2019 10:46-0500 Pulse Oximetry 95 % [facility] 03-13-2019 10:46-0500 Respiratory Rate 16 /min [facility] Encounters Encounter Date Encounter Type Care Provider Facility Start: 02-07-2025 ambulatory Azeb Erazo y:[facility] Start: 02-06-2025 Encounter for other preprocedural examination Azeb Proctor [facility] Start: 01-17-2025 End: 01-17-2025 ambulatory JOSHUA KONG Facility:[facility] Start: 01-13-2025 End: 01-13-2025 ambulatory AZEB PROCTOR [facility] Start: 01-03-2025 End: 01-03-2025 ambulatory JOSHUA KONG Facility:[facility] Start: 12-11-2024 End: 12-11-2024 ambulatory AZEB PROCTOR Facility:[facility] Start: 12-11-2024 Encounter for gynecological examination (general) (routine) without abnormal findings AZEB PROCTOR [facility] Start: 12-11-2024 End: 12-11-2024 Patient encounter procedure Azeb Proctor MD Work Phone: OB/Gynecology Comment on above: Encounter for gyneco logical examination (general) (routine) without abnormal findings (Primary Dx); Screening for cervical cancer; Encounter for screening for human papillomavirus (HPV); Malaise and fatigue; Menorrhagia with regular cycle Start: 12-11-2024 End: 12-11-2024 Patient encounter status Azeb Proctor MD Work Phone: [facility] Start: 09-25-2024 End: 09-25-2024 ambulatory [facility] Start: 09-25-2024 End: 09-25-2024 ambulatory [facility] Start: 03-13-2019 End: 03-13-2019 Office outpatient visit 15 minutes Joshua Kong Work Phone: [facility] Comment on above: Urinary tract infect ion [...] DTaP,Tdap,Td Vaccine (2 - Td or Tdap) [facility] Start: 09-25-2025 Screening for malign ant neoplasm of breast Mammogram Screening [facility] Start: 01-17-2025 End: 01-17-2025 Patient encounter procedure 01/17/2025 11:30 AM EDT Office Visit OB/Gynecology [address] [place], [place] [id number] Azeb Proctor MD [address] [place], [place] [id number] EMB Dx: Abnormal uterine bleeding (AUB) [N93.9] OB/Gynecology Comment on above: EMB Dx: Abnormal teena rine bleeding (AUB) [N93.9] Start: 12-23-2024 Influenza vaccination Influenza Vacc ine (#1) [facility] Start: 12-11-2024 End: 03-12-2025 25-hydroxyvitamin D3 [Mass/volume] in Serum or Plasma VITAMIN D 25 HYDROXY Lab Routine Malaise and fatigue Menorrhagia with regular cycle Expected: 12/11/2024, Expires: 03/12/2025 [facility] Comment on above: Expected: 12/11/2024 , Expires: 03/12/2025 Start: 12-11-2024 End: 03-12-2025 CBC panel - Blood by Automated count COMPLETE BLOOD COUNT Lab Routine Malaise and fatigue Menorrhagia with regular cycle Expected: 12/11/2024, Expires: 03/12/2025 [facility] Comment on above: Expected: 12/11/2024 , Expires: 03/12/2025 Start: 12-11-2024 End: 03-12-2025 Iron and Iron binding capacity panel - Serum or Plasma IRON AND TIBC Lab Routine Malaise and fatigue Menorrhagia with regular cycle Expected: 12/11/2024, Expires: 03/12/2025 [facility] Comment on above: Expected: 12/11/2024 , Expires: 03/12/2025 Start: 12-11-2024 End: 12-11-2025 US Pelvis PELVIC US [facility] Routine Menorrhagia with regular cycle Expected: 12/11/2024, Expires: 12/11/2025 [facility] Work Phone: Comment on above: Expected: 12/11/2024 , Expires: 12/11/2025 Start: 08-14-2022 Screening for malign ant neoplasm of cervix Cervical Cancer Screening [facility] Start: 2021 Diabetes Screening Diabetes Screenin [facility] Start: 2021 Lipid panel Lipid Screening [facility] Start: 2021 Screening for malign ant neoplasm of colon [facility] Start: 12-23-2018 Influenza vaccination INFLUENZA VACC INE (#1) [facility] Start: 2016 Fasting lipid profile [facility]CREENIN [facility] Start: 2016 Screening mammography MAMMOGRA M SCREENING DISCUSSION [facility] Start: 1997 Screening for malign ant neoplasm of cervix PAP SMEAR DISCUSSION [facility] Start: 11-15-1995 Hepatitis B Vaccine (1 of 3 - 19+ 3-dose series) Hepatitis B Vaccine (1 of 3 - 19+ 3-dose series) [facility] Start: 11-15-1995 Third diphtheria, tetanus and acellular pertussis (DTaP) vaccination TDAP (ADULT) [facility] Start: 1994 Anxiety Screening Anxiety Screening [facility] Start: 1994 Depression Screening Depression Scre ening [facility] Start: 1994 Hepatitis C screening Hepatitis C Sc reening [facility] Start: 1994 Tetanus vaccination [facility] Start: 1989 HIV screening HIV SCREENING DISCUSSI ON [facility] Bacteria identified Cx Nom (U) URINE CULTURE Microbiology Routine Acute cystitis without hematuria 03/13/2019 10:50 AM EST [facility] Sisasa Endometrial bx w/wo endocervix bx w/o dilat spx ENDOMETRIAL BIOPSY Procedures Routine Menorrhagia with regular cycle Ordered: 12/11/2024 [facility] Comment on above: Ordered: 12/11/2024 PAP TEST PAP TEST Lab [facility] Encounter for gynecological examination (general) (routine) without abnormal findings Screening for cervical cancer Encounter for screening for human papillomavirus (HPV) 12/11/2024 2:55 PM EDT [facility] Immunizations Immunization Date Immunization Notes Care Provider Fa woo 04-09-2019 influenza virus vacc ine, unspecified formulation Azeb Proctor MD Work Phone: [facility] Payers Date Payer Category Payer Self-pay 2024 [employer] BLUE ACCE SS PPO [id number] 2024 Unknown [id number] 2017 Unknown [employer] M [place] xxxxxxxxx 2017-Present [id number] 2015 Unknown [id number] 2014 Medicare [id number] 1976 Unknown [id number] 1976 Unknown [id number] 1976 Unknown [id number] 1976 Unknown [id number] Unknown [id number] Social History Date Type Detail Facility Start: 06-20-2011 End: 03-13-2019 Tobacco smoking status NHIS Former smoker [facility] Start: 03-13-2019 End: 12-11-2024 Alcohol intake Current drinker of alcohol (finding) [facility] Start: 03-23-2017 Alcohol Comment social ANDRZEJ Carter [facility] Start: 1975 Sex Assigned At Not on file [facility] Start: 02-19-1997 End: 02-19-2007 History of tobacco use Current smoker [facility] Start: 02-19-1997 End: 02-19-2007 History of tobacco use Cigarette Smoker [facility] Start: 06-20-2011 End: 12-11-2024 Cigarettes smoked current (pack per day) - Reported 0.5 [facility] Start: 06-20-2011 Tobacco use and exposure Smoke less tobacco non-user [facility] Start: 12-11-2024 Tobacco use panel [facility] How often to you hav e a drink containing alcohol? 2-3 time sa week [facility] How many standard dr inks containing alcohol do you have on a typical day? 1 or 2 [facility] How often do you hav e 6 or more drinks on 1 occasion? Never [facility] Start: 03-25-2012 National Score (1-10 0), lower number is lower risk 47 [facility] Start: 05-10-2007 Alcohol Comment SOCIALLY,NOT W HILE [facility] Functional Status Date Assessment Result Facility 12-11-2024 Total score [AUDIT-C] 3 12/12/19 25 12:15 PM EDT Renae Kilgore MA [facility] 08-22-2013 Are you deaf, or do you have serious difficulty hearing No 08/22/2013 2:56 PM EDT Brina Perry MA No [facility] 08-22-2013 Are you blind, or do you have serious difficulty seeing, even when wearing glasses No 08/22/2013 2:56 PM RHONDAT Brina Perry MA No [facility] 08-22-2013 Do you have serious difficulty walking or climbing stairs No 08/22/2013 2:56 PM EDT Brina Perry MA No [facility] 08-22-2013 Do you have difficul ty dressing or bathing No 08/22/2013 2:56 PM EDT Brina Perry MA No [facility] 08-22-2013 Because of a physica l, mental, or emotional condition, do you have difficulty doing errands alone such as visiting a physician's office or shopping No 08/22/2013 2:56 PM EDT Brina Perry MA No [facility] Mental Status Date Assessment Result Facility 08-22-2013 Because of a physica l, mental, or emotional condition, do you have serious difficulty concentrating, remembering, or making decisions No 08/22/2013 2:56 PM EDT Brina Perry MA No [facility] Clinical Note 01-31-2025 Note Date & Type Note Facility 01-31-2025 Note [facility] Medical Records Department [address] [place] [address] History Physical Exam 01/31/25 1236 MR#: [id number] Acct: [id number] Name: MELLISA CRUZ Rep #: [id number] : 1975 49 From: Azeb Proctor MD PCP: Status:PRE [place]C [place] [facility] [place] and Physical Date of Admission: 02/07/25 HPI: The patient is a 49 year old female presenting for pre-operative visit. She is scheduled for hysteroscopy with endometrial ablation, for menorrhagia with regular cycle . Procedure discussed along with risks, benefits and complications. Other alternatives discussed for management. Consent form signed? Yes. ? PAST MEDICAL HISTORY PAST MEDICAL HISTORYDiagnosisDate???Abnormal glandular Papanicolaou smear of [id number]???Abn. Pap smear (cervix)???PMH - PAST MEDICAL HISTORY [...] day. for 5 days when your period [id number]???No current facility-administered medications for this visit. ? [...] HISTORY ProblemRelationAge of Onset???DiabetesFather?HypertensionF ather?HeartFather? [place] ???DiabetesMother?Colon KiphozCzszbg20???Ovarian [id number]???other (LYMPHEDMA)Mother?COPDMaternal Grandmother?CancerMaternal Grandfather? LUNG CANCER???HypertensionPaternal Grandmother?HeartPaternal Grandmother? [...] applicable): CC: Dr. Azeb Proctor MD Signed [facility] Progress note 01-17-2025 Note Date & Type Note Facility 01-17-2025 Note HNO ID: [id number] Author: AZEB PROCTOR MD Service: ? Author [...] Reviewed US done 01/13 Azeb Proctor MD [facility] Progress note 12-11-2024 Note Date & Type Note Facility 12-11-2024 Note HNO ID: [id number] Author: AZEB PROCTOR MD Service: ? Author [...] pain: No Last mammogram: 2024 OB History [id number] Para4 Term4 Preterm0 AB6 Living4 SAB6 IAB0 Ectopic0 Multiple0 Live Births4 Maple Sugar Maker History LMP: 11/22/2024 (Exact Date), Having periods Age at Menarche: 17 Age at First : Age at Menopause: Maple Sugar Maker History Comments: Sexual Activity: Yes; Male Contraception: [...] discussed with the Patient or Patient's Authorized Cable Ferryboat Operator. As applicable, any other physician, advance practice provider, medical student, or other health professional student that will be observing or involved in the sensitive examination for educational or training purposes was discussed with the Patient or Authorized Cable Ferryboat Operator. The Patient or Authorized Cable Ferryboat Operator has agreed to proceed with the sensitive [...] external genitalia normal, normal Bartholin's glands, urethra, Dauphin's glands, no vulvar lesions, no cervical lesions, [...] recommend workup, interested (more content not included)... [facility] History of Present illness Narrative 12-11-2024 Azeb [...] pain: No Last mammogram: 2024 OB History Wipehvw22 Para4 Term4 Preterm0 AB6 Living4 SAB6 IAB0 Ectopic0 Multiple0 Live Births4 Maple Sugar Maker History LMP: 11/22/2024 (Exact Date), Having periods Age at Menarche: 17 Age at First : Age at Menopause: Maple Sugar Maker History Comments: Sexual Activity: Yes; Male Contraception: [...] discussed with the Patient or Patient's Authorized Cable Ferryboat Operator. As applicable, any other physician, advance practice provider, medical student, or other health professional student that will be observing or involved in the sensitive examination for educational or training purposes was discussed with the Patient or Authorized Cable Ferryboat Operator. The Patient or Authorized Cable Ferryboat Operator has agreed to proceed with the sensitive [...] external genitalia normal, normal Bartholin's glands, urethra, Dauphin's glands, no vulvar lesions, no cervical lesions, [...] Azeb Proctor MD documented in this encounter [facility] Evaluation note Note Date & Type [...] or frequent menstruation documented in this encounter [facility] History of Present Illness * Joshua [...] section and content) DATE CREATED AUTHOR 04/02/2019 [facility] DATE CREATED AUTHOR AUTHOR'S ORGANIZ ATION 10/02/2024 [facility] DATE CREATED AUTHOR AUTHOR'S ORGANIZ ATION 10/02/2024 [facility] DATE CREATED AUTHOR AUTHOR'S ORGANIZ ATION 01/24/2025 [facility] DATE CREATED AUTHOR AUTHOR'S ORGANIZ ATION 01/30/2025 [facility] DATE CREATED AUTHOR AUTHOR'S ORGANIZ ATION 02/06/2025 [facility] Source Comments (unrecognize d section and content) In the event this informatio n is protected by the Federal Confidentiality of Alcohol and Drug Abuse Patient Records regulations: The Federal rules restrict any use of the information to criminally investigate or prosecute any alcohol or drug abuse patient.[facility] Care Teams (unrecognized sec tion and content) Inside [employer] Special[employer] Grower Relationship Specialty Start Date End Date Joshua [...] BE BASED ON THE PRIMARY CLINICAL RECORDS. [employer] [facility]. provides no warranty or guarantee of the accuracy or completeness of information in this document.
--- NOTE | 2025-02-07 08:56 | PRE.ANES_ITS ---
ASA Classification* ASA Classification ASA Classification: 3 Assessment & Plan Anesthesia* Anesthesia Assessment Anesthesia Assessment: Discussed sedation and/or anesthesia options, risks, benefits, and alternatives with patient/parents/legal guardian/POA. Questions invited. The patient/parents/legal guardian/POA seems to understand and agrees to proceed with anesthesia plan. Reviewed the physical assessment, medical history, allergy history and patient home medications list prior to surgery/procedure/anesthetic and documented any changes. Performed airway and anesthesia risk assessments. 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 When Was Last Pacemaker Check QUESTION #4 FULL TEXT: You/Your Family Experience fever (hyperthermia) with Anesthesia Last Oral Intake Last Oral intake: Last Oral Intake NPO since Meds taken in AM with sips of water? Meds patient instructed to take am of surgery PONV PONV - vulcanizing press operator: PONV - vulcanizing press operator Female Yes 01/28/25 14:21 HX of Motion Sickness No 01/28/25 14:21 HX of N/V After Surgery No 01/28/25 14:21 Non-Smoker Yes 01/28/25 14:21 Duration of Surgery greater No 01/28/25 14:21 than 60 minutes Number of Risk Factors 2 01/28/25 14:21 PONV Score Moderate Risk 01/28/25 14:21 Respiratory Assessment Respiratory Assessment - vulcanizing press operator: Respiratory Tract Infection Hx - vulcanizing press operator Hx Respiratory Tract Infection No 01/28/25 14:21 STOP Sleep Apnea STOP Sleep Apnea - vulcanizing press operator: STOP Sleep Apnea - vulcanizing press operator Hx Hypertension No 01/28/25 14:21 Hx Sleep Apnea No 01/28/25 14:21 CPAP BIPAP Do you snore loudly (louder No 01/28/25 14:21 than talking or can be heard Do you often feel tired/ No 01/28/25 14:21 fatigued/ sleepy during daytime? Has anyone observed you stop No 01/28/25 14:21 breathing during sleep? STOP Results Negative 01/28/25 14:21 QUESTION #5 FULL TEXT : Do you snore loudly (louder than talking or can be heard through closed doors)? 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 Specify any problems Hx of Preganancy in last 3 N/A 01/28/25 14:21 Months Nurse Filling Out Transfusion NBUCHER 01/28/25 14:21 & Questions: Date: 01/28/25 01/28/25 14:21 Time: 14:22 01/28/25 14:21 Patient unable to answer at this time (ie. confused, unrespo /Reproduction History /Reproductive History - vulcanizing press operator: /Reproductive Hx- vulcanizing press operator Hx Now No 01/28/25 14:21 Gestational Age (in weeks): EDC: Hx Hx Para Hx Section SAB No 01/28/25 14:21 Active Medications Active Medications: Current Medications Generic Name Dose Route Start Last Admin Trade Name Freq PRN Reason Stop Dose Admin Acetaminophen 1,000 mg 02/07/25 10:30 Acetaminophen 500 Mg Tablet PO 02/07/25 10:31 PREOP ONE Lactated Ringer's 1,000 mls @ 15 mls/hr 02/07/25 08:30 IV .Q48H CA Ketorolac Tromethamine 30 mg 02/07/25 10:30 Ketorolac 30 Mg/Ml Syringe IV 02/07/25 10:31 PREOP ONE PFSH Medical History Wears contact lenses Wears glasses Former smoker DVT (deep venous thrombosis) Home Medications ?Medication ?Instructions ?Recorded ?Last Taken ?Type BEEF ORGAN 2 cap PO DAILY 01/28/25 Unkn own History Mushroom Power-Matcha 1 cap PO DAILY 01/28/25 Unkn own History cholecalciferol (vitamin D3) 25 50 mcg PO QDAY 5 Unknown History mcg (1,000 unit) capsule (Vitamin D3) Allergy/AdvReac Type Severity Reaction Status Date / Time No Known Allergies Allergy Verified 02/07/25 08:56 Surgical History History of History of D&C Social History Smoking Status: Former smoker Review of Systems (Anesthesia) ROS Narrative System reviewed and no additional complaints, except as documented.
--- NOTE | 2025-02-07 08:56 | PRE.ANES_ITS ---
ASA Classification* ASA Classification ASA Classification: 3 Assessment & Plan Anesthesia* Anesthesia Assessment Anesthesia Assessment: Discussed sedation and/or anesthesia options, risks, benefits, and alternatives with patient/parents/legal guardian/POA. Questions invited. The patient/parents/legal guardian/POA seems to understand and agrees to proceed with anesthesia plan. Reviewed the physical assessment, medical history, allergy history and patient home medications list prior to surgery/procedure/anesthetic and documented any changes. Performed airway and anesthesia risk assessments. Anesthesia Type Anesthesia Type: MAC Anesthesia Focused Assessment* Airway Assessment Mouth opens: >3 cm Mallampati Score: II Labs Anesthesia Preop lab: CBC WBC, (4.4-11.0) 9.1 K/mm3 02/03/25, 13:04 RBC, (4.2-5.4) 4.97 M/mm3 02/03/25, 13:04 Hgb, (12.0-15.0) 14.4 g/dL 02/03/25, 13:04 Hct, (37-47) 41.5 % 02/03/25, 13:04 Plt Count, (150-450) 240 K/mm3 02/03/25, 13:04 CHEMISTRY COAG Pre-Assessment Diagnosis/Proposed Procedure Planned Operative Procedure(s): (N/A) Hysteroscopy with endometrial ablation Norma Anesthesia History Anesthesia History - last code striper: Anesthesia History - last code striper Hx Hospitalization No 01/28/25 14:21 Any Problems With Anesthesia No 01/28/25 14:21 Cholinesterase deficiency No 01/28/25 14:21 You/Your Family Experience No 01/28/25 14:21 fever (hyperthermia) with Relationship Recent Exposure to Contagious Disease Does patient have nerve No 01/28/25 14:21 stimulator Patient instructed to have device shut off --Does patient have Pacemaker or ICD? When Was Last Pacemaker Check QUESTION #4 FULL TEXT: You/Your Family Experience fever (hyperthermia) with Anesthesia Last Oral Intake Last Oral intake: Last Oral Intake NPO since Meds taken in AM with sips of water? Meds patient instructed to take am of surgery PONV PONV - last code striper: PONV - last code striper Female Yes 01/28/25 14:21 HX of Motion Sickness No 01/28/25 14:21 HX of N/V After Surgery No 01/28/25 14:21 Non-Smoker Yes 01/28/25 14:21 Duration of Surgery greater No 01/28/25 14:21 than 60 minutes Number of Risk Factors 2 01/28/25 14:21 PONV Score Moderate Risk 01/28/25 14:21 Respiratory Assessment Respiratory Assessment - last code striper: Respiratory Tract Infection Hx - last code striper Hx Respiratory Tract Infection No 01/28/25 14:21 STOP Sleep Apnea STOP Sleep Apnea - last code striper: STOP Sleep Apnea - last code striper Hx Hypertension No 01/28/25 14:21 Hx Sleep Apnea No 01/28/25 14:21 CPAP BIPAP Do you snore loudly (louder No 01/28/25 14:21 than talking or can be heard Do you often feel tired/ No 01/28/25 14:21 fatigued/ sleepy during daytime? Has anyone observed you stop No 01/28/25 14:21 breathing during sleep? STOP Results Negative 01/28/25 14:21 QUESTION #5 FULL TEXT : Do you snore loudly (louder than talking or can be heard through closed doors)? 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 Specify any problems Hx of Preganancy in last 3 N/A 01/28/25 14:21 Months Nurse Filling Out Transfusion NBUCHER 01/28/25 14:21 & Questions: Date: 01/28/25 01/28/25 14:21 Time: 14:22 01/28/25 14:21 Patient unable to answer at this time (ie. confused, unrespo /Reproduction History /Reproductive History - last code striper: /Reproductive Hx- last code striper Hx Now No 01/28/25 14:21 Gestational Age (in weeks): EDC: Hx Hx Para Hx Section SAB No 01/28/25 14:21 Active Medications Active Medications: Current Medications Generic Name Dose Route Start Last Admin Trade Name Freq PRN Reason Stop Dose Admin Acetaminophen 1,000 mg 02/07/25 10:30 Acetaminophen 500 Mg Tablet PO 02/07/25 10:31 PREOP ONE Lactated Ringer's 1,000 mls @ 15 mls/hr 02/07/25 08:30 IV .Q48H CA Ketorolac Tromethamine 30 mg 02/07/25 10:30 Ketorolac 30 Mg/Ml Syringe IV 02/07/25 10:31 PREOP ONE PFSH Medical History Wears contact lenses Wears glasses Former smoker DVT (deep venous thrombosis) Home Medications ?Medication ?Instructions ?Recorded ?Last Taken ?Type BEEF ORGAN 2 cap PO DAILY 01/28/25 Unkn own History Mushroom Power-Matcha 1 cap PO DAILY 01/28/25 Unkn own History cholecalciferol (vitamin D3) 25 50 mcg PO QDAY 5 Unknown History mcg (1,000 unit) capsule (Vitamin D3) Allergy/AdvReac Type Severity Reaction Status Date / Time No Known Allergies Allergy Verified 02/07/25 08:56 Surgical History History of History of D&C Social History Smoking Status: Former smoker Review of Systems (Anesthesia) ROS Narrative System reviewed and no additional complaints, except as documented.
[2025-02-07] MEDS: Lactated Ringers 1,000 ML 15 ML IV (09:33)
[2025-02-07] MEDS: Ketorolac 30 MG/ML Syringe IV (09:33)
[2025-02-07] MEDS: Lactated Ringers 1,000 ML 1000 ML IV (10:38)
[2025-02-07] MEDS: Midazolam 2 MG/2 ML Syringe IV (10:38)
[2025-02-07] MEDS: fentaNYL 100 MCG/2 ML Ampul IV (10:45)
[2025-02-07] MEDS: Lidocaine 1% (5 ml sdv) 5 ML Vial IV (10:45)
[2025-02-07] MEDS: Lidocaine 1% /Epi 1:100 (50ml) 50 ML VIAL (11:06)
--- NOTE | 2025-02-07 11:18 | PCM.DC ---
Discharge Instructions DC O2, CPAP, BIPAP needs Home O2 Discharge instructions: No Dressing / Incision Discharge Activity: May Shower Return to work on:: 02/10/25 May shower in (days): 1 May resume sexual activity in: 2 weeks Lifting Restrictions: none Dressing / Incision Call your doctor if your incision/area has: Sudden Increased Bleeding and Foul Smelling Discharge Call your doctor if you observe: Fever of 101 or Higher and Using more than 1 pad per hour (for 2 hrs in a row) Follow Up Care Please Follow Up With: Kristina Frazier MD When: Call [phone] or send a MyChart mesage to make an appointment or with any concerns. You do not have to have a postop appointment. Test Results: Test results from this visit will be discussed in further detail at your follow-up appointment, if applicable. Discharge Plan Admission Primary Reason for Your Visit: Hysteroscopy With Endometrial Ablation Attending Provider: Kristina Frazier Primary Care Provider: ENRIQUE SCHWARTZ Instructions Print Language: Romanian Discharge Orders/Prescriptions Prescriptions: No Action BEEF ORGAN 2 cap PO DAILY cholecalciferol (vitamin D3) [Vitamin D3] 25 mcg (1,000 unit) capsule 50 mcg PO QDAY Mushroom Power-Matcha 1 cap PO DAILY Rx Instructions: EMILIA GONZALEZ Disposition Disposition (needs filled in before D/C Order can be placed): Home, Self Care
--- NOTE | 2025-02-07 11:25 | PCM.POST.ANE ---
Anesthesia: Postop Eval I Current Vital Signs Temperature: 97.2 F Pulse Rate: 113 Blood Pressure: 135/89 Respiratory Rate: 20 Pulse Ox: 99 Oxygen Delivery Method: Room Air Assessment Airway patent: Yes Spontaneous unlabored respirations: Yes Mental status: Awake and Calm nausea: No Vomiting: No Anesthesia Complication: No Fluid Hydration Crystalloid volume administer (ml): 700 Total IV fluid infused: 700 Progress Note Anesthesia document: Postop Eval 1 completed: Yes
--- NOTE | 2025-02-07 11:52 | POSTOPAN2_ITS ---
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 Spontaneous unlabored Yes 02/07/25 11:25 SCHOOL BUS [email or web address] respirations Mental status Awake,Calm 02/07/25 11:25 SCHOOL BUS [email or web address] nausea No 02/07/25 11:25 SCHOOL BUS [email or web address] Vomiting No 02/07/25 11:25 SCHOOL BUS [email or web address] Anesthesia Postop Eval I: Fluid Summary Crystalloid volume administer 700 02/07/25 11:25 SCHOOL BUS [email or web address] (ml) Colloids volume administered ( ml) Blood Product volume administered (ml) Total IV fluid infused 700 02/07/25 11:25 SCHOOL BUS [email or web address] Anesthesia Postop Eval I: Summary Notes Anesthesia Complication No 02/07/25 11:25 SCHOOL BUS [email or web address] Anesthesia Complication Comment: Post-operative progress note Anesthesia: Postop Eval II Evaluation Mental status: Awake Pain Level: 0 nausea: No Vomiting: No
--- NOTE | 2025-02-07 11:52 | POSTOPAN2_ITS ---
Anesthesia Postop Eval I Sum Postop Eval Completion status Anesthesia document: Postop Eval 1 completed: Yes Anesthesia Postop Eval I Summary Anesthesia Postop Eval I Summary: Anesthesia Postop Eval I: Assessment Summary Airway patent Yes 02/07/25 11:25 [email or web address] Spontaneous unlabored Yes 02/07/25 11:25 CULINARY [email or web address] respirations Mental status Awake,Calm 02/07/25 11:25 CULINARY [email or web address] nausea No 02/07/25 11:25 CULINARY [email or web address] Vomiting No 02/07/25 11:25 CULINARY [email or web address] Anesthesia Postop Eval I: Fluid Summary Crystalloid volume administer 700 02/07/25 11:25 CULINARY [email or web address] (ml) Colloids volume administered ( ml) Blood Product volume administered (ml) Total IV fluid infused 700 02/07/25 11:25 CULINARY [email or web address] Anesthesia Postop Eval I: Summary Notes Anesthesia Complication No 02/07/25 11:25 CULINARY [email or web address] Anesthesia Complication Comment: Post-operative progress note Anesthesia: Postop Eval II Evaluation Mental status: Awake Pain Level: 0 nausea: No Vomiting: No
--- NOTE | 2025-02-07 11:52 | PCM.POSTANE2 ---
Anesthesia Postop Eval I Sum Postop Eval Completion status Anesthesia document: Postop Eval 1 completed: Yes Anesthesia Postop Eval I Summary Anesthesia Postop Eval I Summary: Anesthesia Postop Eval I: Assessment Summary Airway patent Yes 02/07/25 11:25 CHECK [email or web address] Spontaneous unlabored Yes 02/07/25 11:25 CHECK [email or web address] respirations Mental status Awake,Calm 02/07/25 11:25 CHECK [email or web address] nausea No 02/07/25 11:25 CHECK [email or web address] Vomiting No 02/07/25 11:25 CHECK [email or web address] Anesthesia Postop Eval I: Fluid Summary Crystalloid volume administer 700 02/07/25 11:25 CHECK [email or web address] (ml) Colloids volume administered ( ml) Blood Product volume administered (ml) Total IV fluid infused 700 02/07/25 11:25 CHECK [email or web address] Anesthesia Postop Eval I: Summary Notes Anesthesia Complication No 02/07/25 11:25 CHECK [email or web address] Anesthesia Complication Comment: Post-operative progress note Anesthesia: Postop Eval II Evaluation Mental status: Awake Pain Level: 0 nausea: No Vomiting: No
--- NOTE | 2025-02-07 11:52 | PCM.POSTANE2 ---
Anesthesia Postop Eval I Sum Postop Eval Completion status Anesthesia document: Postop Eval 1 completed: Yes Anesthesia Postop Eval I Summary Anesthesia Postop Eval I Summary: Anesthesia Postop Eval I: Assessment Summary Airway patent Yes 02/07/25 11:25 SERGING MACHINE [email or web address] Spontaneous unlabored Yes 02/07/25 11:25 SERGING MACHINE [email or web address] respirations Mental status Awake,Calm 02/07/25 11:25 SERGING MACHINE [email or web address] nausea No 02/07/25 11:25 SERGING MACHINE [email or web address] Vomiting No 02/07/25 11:25 SERGING MACHINE [email or web address] Anesthesia Postop Eval I: Fluid Summary Crystalloid volume administer 700 02/07/25 11:25 SERGING MACHINE [email or web address] (ml) Colloids volume administered ( ml) Blood Product volume administered (ml) Total IV fluid infused 700 02/07/25 11:25 SERGING MACHINE [email or web address] Anesthesia Postop Eval I: Summary Notes Anesthesia Complication No 02/07/25 11:25 SERGING MACHINE [email or web address] Anesthesia Complication Comment: Post-operative progress note Anesthesia: Postop Eval II Evaluation Mental status: Awake Pain Level: 0 nausea: No Vomiting: No
--- NOTE | 2025-02-19 14:26 | PCM.OPRPT ---
Operative Report (Standard) Operative Information Date of Procedure: 02/07/25 Pre-Operative Diagnosis: menorrhagia Post-Operative Diagnosis: same Surgery/Procedure Performed: Hysteroscopy with endometrial ablation manpower development specialist manager: No Type of Anesthesia: Local MAC RN Documented Start/Stop Times: Operation Date: 02/07/25 10:30 Case Time Into Pre-Op 02/07/25 08:26 Anesthesia Start 02/07/25 10:38 Into Room 02/07/25 10:38 Procedure Start 02/07/25 11:00 Procedure End 02/07/25 11:13 Anesthesia End 02/07/25 11:18 Out of Room 02/07/25 11:18 Into Recovery 02/07/25 11:21 Out of Recovery 02/07/25 11:45 Into Phase II Recovery 02/07/25 11:46 Out of Phase II 02/07/25 12:27 Procedure Start Time: 11:00 Procedure Stop Time: 11:13 Select all DRAINS/GRAFTS/IMPLANTS that apply: None Estimated Blood Loss: 10 Specimen collected: No Description of surgery: Patient taken to the operating room where she was prepped and drapped in the usual sterile fashion. The weighted speculum was placed in the vagina and the cervix grasped with a single tooth tenaculum. The cervix was infiltrated with 1% lidocaine with 1:100.000 epi in a paracervical fashion. The cervix was dilated. The hysteroscope was placed. Both tubal ostia were visualized. No focal abnormalities were noted. The Norma device was readied. The uterus sounded to 8 cm and the cervical length was 3.5 cm. The device was set to a cavity size of 4.5 cm. The device was seated into the uterus and passed the safety screen on the first attempt. The device completed the ablation cycle without interruption. T he device was removed as were the other vaginal instruments and a vaginal sweep was completed by me. Sponge and sharp counts were correct. Surgical Findings: normal cervix and vagina, normal endometrium Complications Complications: No Admit VTE Documentation VTE Present on Admission: No VTE Mechan Device Prophylaxis: SCD's VTE Pharm Prophylaxis ordered?: No
== END 2025-02-07 12:27 | disposition home or self-care (01) ==
LOC: SDC 08:16 → AC 08:18
PROVIDERS: Referring Provider Obstetrics & Gynecology; Visit Provider Obstetrics & Gynecology
PROC: 0U5B8ZZ Destruction of Endometrium, Via Natural or Artificial Opening Endoscopic (ICD-10-PCS; CPT 58558; principal; 2025-02-07 10:15)
DX: N92.0 Excessive and frequent menstruation with regular cycle (principal); Z87.891 Personal history of nicotine dependence
CPT/HCPCS: 58563; 00952; 36415; 85027; J2405